=== PATIENT | female | born 1970 | race Caucasian/White ===

== ENCOUNTER 2019-07-11 11:02 | Outpatient (CLI) | payer BC, SELFPAY ==
--- NOTE | ~2019-07-11 | US_ITS ---
EXAMINATION: US venous doppler [facility] DATE: 07/11/2019 11:58 INDICATION: Phlebitis and thrombophlebitis of lower extremities, unspecified. TECHNIQUE: Grayscale ultrasound images without and with compression and Doppler ultrasound images of the left lower extremity veins were obtained. COMPARISON: None. FINDINGS: The visualized portions of left common femoral vein, profunda (deep) femoral vein, femoral vein, popl iteal vein, peroneal veins, posterior tibial veins, and greater saphenous vein outflow are patent. Th ere is a moderate-sized Amos's cyst. IMPRESSION: 1. No deep venous thrombosis. 2. Moderate-sized Amos's cyst. Reviewed, dictated and finalized at location A.
== END 2019-07-11 11:03 | disposition home or self-care (01) ==
LOC: ANHIMG 11:10
PROVIDERS: PCP Family Medicine; Visit Provider Family Medicine
DX: I80.3 Phlebitis and thrombophlebitis of lower extremities, unspecified (principal); M71.22 Synovial cyst of popliteal space [Baker], left knee
CPT/HCPCS: 93971

== ENCOUNTER 2023-06-16 09:10 | Outpatient (CLI) | payer BC, SELFPAY ==
--- NOTE | ~2023-06-16 | XR_ITS ---
Right foot Technique: AP and lateral standing views were obtained. Clinical History: Rheumatoid arthritis Findings: No acute fracture or dislocation is seen. Osseous alignment is anatomic. Joint spaces are p reserved without erosive or degenerative change. Plantar calcaneal spur noted. Soft tissues are unrem arkable. Impression: Plantar calcaneal spur, otherwise unremarkable exam. Reviewed, dictated and finalized at location . Impression: Plantar calcaneal spur, otherwise unremarkable exam.
--- NOTE | ~2023-06-16 | XR_ITS ---
EXAMINATION: HAND-ELLI ARTHRITIS 3+VIEWS DATE: 06/16/2023 09:31 INDICATION: Rheumatoid arthritis TECHNIQUE: Posteroanterior, lateral, and oblique views of the left and of the right hands as well as a ballcatchers view of both hands were obtained. COMPARISON: None. FINDINGS: Alignment is normal. No fracture. Joint spaces are normal. No evident erosions to suggest inflammator y arthritis. Soft tissues are unremarkable. IMPRESSION: 1. Negative bilateral hand radiographs with no joint space narrowing or erosions to suggest an inflam matory arthritis. Reviewed, dictated and finalized at location A. IMPRESSION: 1. Negative bilateral hand radiographs with no joint space narrowing or erosion s to suggest an inflammatory arthritis.
== END 2023-06-16 09:11 ==
LOC: GOSHIMG 09:11
PROVIDERS: PCP Family Medicine; Visit Provider Internal Medicine
DX: M77.32 Calcaneal spur, left foot (principal); M77.31 Calcaneal spur, right foot
CPT/HCPCS: 73130; 73620

== ENCOUNTER 2023-09-29 09:58 | Outpatient (CLI) | payer OTHER, SELFPAY ==
[2023-09-29 11:07] LABS: Thyroid Stimulating Hormone 0.803 uIU/mL (0.465-4.680); Total Triiodothyronine (T3) 1.54 NG/ML (0.97-1.69)
[2023-09-29 11:39] LABS: Free T4 Free Thyroxine 1.32 ng/mL (0.78-2.19)
[2023-09-30 14:54] LABS: Thyroid Peroxidase Antibodies <1 IU/mL (<9)
== END 2023-09-29 09:59 | disposition home or self-care (01) ==
PROVIDERS: PCP Family Medicine; Visit Provider Family Medicine
DX: L65.9 Nonscarring hair loss, unspecified (principal); M06.9 Rheumatoid arthritis, unspecified; M35.00 Sjogren syndrome, unspecified
CPT/HCPCS: 36415; 84439; 84443; 84480; 86376

== ENCOUNTER 2024-04-20 00:25 | Day surgery (SDC) | payer OTHER, SELFPAY ==
[2024-04-12 14:55] VITALS: BMI 23.3
--- OUTSIDE RECORDS SUMMARY | 2024-04-20 00:29 | XMS_ITS | Encounter Summary ---
Author Organization [facility] Address [address] [place] [address] Phone Care Team Providers Care Department Helper Name Role Phone Kallie Ojeda MD Unavailable Gurdeep Fernandez MD Unavailable [phone] Dana Garcia MD Primary Care Provider Encounter Details Date Type Department Care Team (Late st Contact Info) Description 04/19/2024 Results Follow-Up [facility] [address] [place] [address] HamletNichelle reyes MD [address] [place] [address] Social History Tobacco Use Types Packs/Day Years Used Date Smoking Tobacco: Former Smokeless Tobacco: Never Comments No Sex and Gender Information Value Date Recorded Sex Assigned at Not on file Legal Sex Female 2:14 AM [employer] Gender Identity Not on file Sexual Orientation Not on file documented as of this encounter Plan of Treatment Not on file documented as of this encounter Visit Diagnoses Not on filedocumented in this encounter Care Teams Department Helper Relationship Specialty Start Date End Date Dana Garcia MD [address] [place] [address] PCP - General 01/11/19 Kallie Ojeda MD [address] [facility] [address] [place] [address] Radiation Oncologist Radiation Oncology 12/15/17 Gurdeep Fernandez MD [address] [place] [address] Surgeon Surgical Oncology 12/15/17 documented as of this encounter
--- OUTSIDE RECORDS SUMMARY | 2024-04-20 00:29 | XMS_ITS | Clinical Summary ---
Author Organization [facility] Address [address] [place] [address] Care Team Providers Care Corporate Accounting Manager Name Role Phone Kallie Ojeda MD Unavailable Gurdeep Fernandez MD Unavailable [phone] Dana Garcia MD Primary Care Provider Allergies Active Allergy Reactions Criticality Noted Date Comments Barrett Chloride Hives Medium 07/11/2023 Lanolin Alcohols Hives Medium 12/01/2023 Nickel Hives Medium 11/10/2023 Sulfa (Sulfonamide Antibiotics) Urticaria Medium 06/10 Sulfanilamide Hives Reaction: Hives, Sulfasalazine Urticaria Medium 06/30/2017 Medications multivit-minerals/ferrou s fum (MULTI VITAMIN ORAL) daily Active cholecalciferol (VITAMIN D-3) 25 mcg (1,000 unit) tablet Take 1 tablet (1,000 Units total) by mouth daily Active lidocaine (XYLOCAINE) 10 mg/mL (1 %) injection as needed Active triamcinolone (Kenalog) 10 mg/mL injection as needed A ctive bupivacaine HCl (MARCAINE) 0.5 % (5 mg/mL) injection Act jersey minoxidiL (LONITEN) 2.5 mg tabletIndications:Sjogre n's syndrome with keratoconjunctivitis sicca TAKE 1/2 (ONE-HALF) TABLET BY MOUTH ONCE DAILY WITH A FATTY MEAL. 01/13/20 24 Active hydroxychloroquine (PLAQUENIL) 200 mg tabletIndications:Connec tive Tissue Disease,Sjogren syndrome Take 1.5 tablets (300 mg total) by mouth daily 45 tablet 5 03/11/19 025 Active mycophenolate mofetil (CELLCEPT) 500 mg tabletIndications:Inflam matory arthritis,Sjogren's syndrome with keratoconjunctivitis sicca Take 2 tablets (1,000 mg total) by mouth 2 (two) times a day 120 tablet 03/11/19 025 Active Active Problems Problem Noted Date Diagnosed Date Seronegative rheumatoid arthritis 03/12/2024 Alopecia areata 03/12/2024 Breast cancer screening, high risk patient 11/09 Family history of breast cancer 10/29/2021 Enthesopathy of hip region 03/22/2021 Inflammatory arthritis 03/22/2021 Sjogren's syndrome 03/22/2021 Assessment & Plan (07/19/2021 1:19 PM CDT): Presents today for f/u of mild sicca symptoms. -Exam today shows mildly decreased tear film, MGD OU -Can continue warm compresses OU and continue systane gtts PRN which she feels adequately controls her symptoms -Emely's tests today were normal (full both papers >30) -She is established with another eye care provider and prefers to f/u here PRN Assessment & Plan (04/15/2021 11:21 AM BOARD MILL SUPERVISOR): Presents today for evaluation of mild sicca symptoms. -Exam today shows mildly decreased tear film, MGD OU -Can trial warm compresses OU and continue systane gtts PRN which she feels adequately controls her symptoms -RTC 3 mos with Emely's test OU (no gtts prior to evaluation). 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 09/30/2016 Cancer Staging:Clinical stage from 09/22/2016:Stage 0(Tis (DCIS), N0, M0) - Signed by Ethel Lam, PhD on 12/15/2017 Pathologic stage from 10/21/2016:Stage 0(Tis (DCIS), N0, cM0) - Signed by Ethel Lam, PhD on 12/15/2017 Resolved Problems Problem Noted Date Diagnosed Date Resolved Date Prophylactic use of tamoxifen 10/29/2021 11/10/2023 Encounter for nonprocreative genetic counseling and testing 10/29/2021 11/10/2023 Encounter for screening mamm ogram for breast cancer 10/29/2021 03/12/2024 Aromatase inhibitor use 03/22/202110/11 Encounter for monitoring tamoxifen therapy 09/28/2018 11/10/2023 Encounters Date Type Department Care Team Description 04/19/2024 9:00 AM CDT Hospital Encounter [facility] Imaging and Radiology [address] [place] [address] Family history of breast cancer; History of ductal carcinoma in situ (DCIS) of breast; 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 Oncology [address] [place] [address] HamletNichelle reyes MD 03/11/2024 9:20 AM BOARD MILL SUPERVISOR - 03/11/2024 11:59 PM BOARD MILL SUPERVISOR Hospital Encounter [facility] [address] [place] [id number] Sjogren's syndrome with keratoconjunctivitis sicca Discharge Disposition: Discharge to home or self care 03/11/2024 9:10 AM BOARD MILL SUPERVISOR Lab [facility] [address] [place] [phone] Inflammatory arthritis; Sjogren's syndrome with keratoconjunctivitis sicca; Enthesopathy 03/11/2024 8:00 AM BOARD MILL SUPERVISOR Office Visit [facility] Rheumatology [facility] 5th [place] [address] [place] [address] Colten Soto MD PhD Inflammatory arthritis (Primary Dx); Seronegative rheumatoid arthritis (HCC); Sjogren's syndrome with keratoconjunctivitis sicca; Enthesopathy 03/08/[address] [facility] Rheumatology [address] [facility] [address] [place] [address] Deyanira Christianson, [facility] Labs Only (02/17/24) from Last 3 Months Surgical History Surgery Date Site/Laterality Comments OTHER SURGICAL HISTORY fibroid tumors: ablatiom LASIK 02/09/2013 - 02/08/2014 Bilateral HYSTERECTOMY Medical History Medical History Date Comments Fibroids 2017 History of radiation therapy Alopecia Family History Medical History Relation Name Comments Breast cancer Father's Sister Uterine cancer Maternal Grandmother Thyroid disease Mother Thyroid dise ase; Pancreatic cancer Mother's Brother Endometrial cancer Neg Hx Ovarian cancer Neg Hx Thyroid cancer Neg Hx Relation Name Status Comments Father's Sister Maternal Grandmother Mother Mother's Brother Alive Social History Tobacco Use Types Packs/Day Years Used Date Smoking Tobacco: Former Smokeless Tobacco: Never Tobacco Cessation:Counseling Given: Not Answered Comments No Sex and Gender Information Value Date Recorded Sex Assigned at Not on file Legal Sex Female 2:14 AM BOARD MILL SUPERVISOR Gender Identity Not on file Sexual Orientation Not on file Obstetrics History Para Term AB IAB SAB Ectopic Multiple Livin g Live Births 2 1 1 Date Outcome GA Total Labor Labor/2nd/3rd Weight Sex Type Anes PTL Tammy A1 A5 Name Clin Term Last Filed Vital Signs Vital Sign Reading Time Taken Comments Blood Pressure 114/77 03/11/2024 7:53 AM BOARD MILL SUPERVISOR Pulse 76 03/11/2024 7:53 AM BOARD MILL SUPERVISOR Temperature 36.9 C (98.4 F) 03/11/2024 7:53 AM BOARD MILL SUPERVISOR Respiratory Rate 18 12/01/2023 2:33 PM CDT Oxygen Saturation 99% 12/01/2023 2:33 PM CDT Inhaled Oxygen Concentration - - Weight 65.8 kg (145 lb) 03/11/2024 7:53 AM BOARD MILL SUPERVISOR Height 165.1 cm (5' 5 ) 03/11/2024 7:53 AM BOARD MILL SUPERVISOR Body Mass Index 24.13 03/11/2024 7:53 AM BOARD MILL SUPERVISOR Plan of Treatment Health Maintenance Due Date Last Done Comments Colon Cancer Screening-Colonoscopy 1969 Depression Screening 1969 DTaP/Tdap/Td Vaccine (1 - Tdap) 1980 Hepatitis B Screening 10/06/1987 Regular Well Visit/Exam 18-64 10/06/1987 Pneumococcal vaccine <65 (1 of 2 - PCV) 1988 Zoster Vaccine (1 of 2) 1988 Influenza Vaccine (#1) 2023 Breast Cancer Screening-Mammogram 11/09/2024 11/10/2023, 11/04/2022, 10/22/2021, Additional history exists Hepatitis C Screening Completed 03/22/2021 Procedures Procedure Name Priority Date/Time Associated Diagnosis Comments MRI BREAST BILATERAL W WO CONTRAST Schedule Routine, Read Routine (OP Routine) 04/19/2024 10:23 AM CDT Family history of breast cancer 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 Breast cancer screening, high risk patient XR HAND BILATERAL 3 OR MORE VIEWS OF EACH Schedule Routine, Read Routine (OP Routine) 03/11/2024 9:35 AM BOARD MILL SUPERVISOR Sjogren's syndrome with keratoconjunctivitis sicca XR WRIST BILATERAL 3 OR MORE VIEWS Schedule Routine, Read Routine (OP Routine) 03/11/2024 9:35 AM BOARD MILL SUPERVISOR Sjogren's syndrome with keratoconjunctivitis sicca EGFR Routine 03/11/2024 9:02 AM BOARD MILL SUPERVISOR Inflammatory arthritis Sjogren's syndrome with keratoconjunctivitis sicca DIFFERENTIAL AUTO Routine 03/11/2024 9:02 AM BOARD MILL SUPERVISOR Inflammatory arthritis Sjogren's syndrome with keratoconjunctivitis sicca HLA-B*27 TYPING FOR ANKYLOSING SPONDYLITIS Routine 03/11/2024 9:02 AM BOARD MILL SUPERVISOR Enthesopathy HLA CLASS I DNA (ABC) RECIPIENT Routine 03/11/2024 9:02 AM BOARD MILL SUPERVISOR Enthesopathy CBC WITH AUTO DIFFERENTIAL Routine 03/11/2024 9:02 AM BOARD MILL SUPERVISOR Inflammatory arthritis Sjogren's syndrome with keratoconjunctivitis sicca COMPREHENSIVE METABOLIC PANEL Routine 03/11/2024 9:02 AM BOARD MILL SUPERVISOR Inflammatory arthritis Sjogren's syndrome with keratoconjunctivitis sicca PROTEIN ELECTROPHORESIS, WITH REFLEX, SERUM Routine 03/11/2024 9:02 AM BOARD MILL SUPERVISOR Sjogren's syndrome with keratoconjunctivitis sicca IMMUNOGLOBULIN PROFILE Routine 03/11/2024 9:02 AM BOARD MILL SUPERVISOR Sjogren's syndrome with keratoconjunctivitis sicca IMMUNOTYPING Routine 03/11/2024 9:02 AM BOARD MILL SUPERVISOR Sjogren's syndrome with keratoconjunctivitis sicca RHEUMATOID FACTOR Routine 03/11/2024 9:02 AM BOARD MILL SUPERVISOR Inflammatory arthritis CYCLIC CITRUL PEPTIDE ANTIBODY, IGG Routine 03/11/2024 9:02 AM BOARD MILL SUPERVISOR Inflammatory arthritis SCREENING MAMMOGRAM BILATERAL W JUDE Schedule Routine, Read Routine (OP Routine) 11/10/2023 9:31 AM CDT Encounter for screening mammogram for breast cancer HEPATITIS C ANTIBODY Routine 03/22/2021 11:23 AM BOARD MILL SUPERVISOR Inflammatory arthritis from Last 3 Months or Most Recently Relevant to Health Maintenance Results * MRI Breast Bilateral W WO Contrast (04/19/2024 10:23 AM CDT) Anatomical Region Laterality Modality Breast Bilateral Magnetic Resonan ce 04/19/2024 11:5 2 AM CDT Impressions 04/19/2024 1:02 PM CDT 1. Changes of right breast conservation therapy with oval T2 hyperintense enhancing mass in the slightly outer lower right breast, mammographically stable dating back to at least 2020, therefore deemed benign. 2. No MRI evidence of malignancy within either breast. OVERALL FINAL ASSESSMENT: BI-RADS Category 2: Benign. RECOMMENDATION: Annual screening mammography, with screening breast MRI if clinically indicated, are recommended. Dictated by: Digna Kevin M.D. The radiology attending physician has personally reviewed this study, and had reviewed and/or edited this written report and agrees with it. Electronically signed by: Allison Prieto M.D. Narrative 04/19/2024 1:02 PM CDT EXAMINATION: 1. MRI EXAMINATION OF THE BREASTS WITH AND WITHOUT CONTRAST 2. 3D POST PROCESSING ON A DEDICATED 3D WORKSTATION HISTORY: 53-year-old female with history of ductal carcinoma in situ, managed with breast conservation therapy. TECHNIQUE: MRI examination of the breasts per breast tumor protocol with and without gadolinium contrast. A dedicated breast imaging coil was used. The images were transferred to a breast CAD system for 3D post processing and contrast kinetics analysis. CONTRAST: Gadoterate meglumine, 13 ml. COMPARISON: Multiple mammograms, most recently 11/04/2022. BREAST COMPOSITION: Scattered fibroglandular tissue. BACKGROUND PARENCHYMAL ENHANCEMENT: Mild. FINDINGS: Postsurgical changes are noted within the upper outer right breast with patchy areas of enhancement around the lumpectomy site, consistent with changes of breast conservation therapy. There is an oval 0.6 cm T2 hyperintense enhancing mass with circumscribed margins in the slightly outer lower right breast at mid to posterior depth. There is no suspicious enhancing mass or non-mass enhancement noted within the left breast. No abnormally enlarged lymph nodes are identified in the visualized portions of either axilla. Nichelle Mcnulty MD IM MRI PROCEDURES Final Re sult * XR Wrist Bilateral 3 or More Views (03/11/2024 9:35 AM BOARD MILL SUPERVISOR) Anatomical Region Laterality Modality Upper Extremities, Wrist Compute d Radiography 03/11/2024 11:1 6 AM BOARD MILL SUPERVISOR Impressions 03/11/2024 11:50 AM BOARD MILL SUPERVISOR No definite radiographic evidence of inflammatory arthritis in the hands and wrists. Dictated by: Deonte June MD The radiology attending physician has personally reviewed this study, and had reviewed and/or edited this written report and agrees with it. Electronically signed by: Rolando Abbott D.O. Narrative 03/11/2024 11:50 AM BOARD MILL SUPERVISOR EXAMINATION: XR WRIST BILATERAL 3 OR MORE VIEWS, XR HAND BILATERAL 3 OR MORE VIEWS OF EACH HISTORY: Sjogren's syndrome, concern for inflammatory arthritis COMPARISON: Multiple prior radiographs, most recently 07/24/2020 FINDINGS: Bilateral wrists: No acute fracture or dislocation of the wrist. There is bilateral mild triscaphe osteoarthritis. No definite osseous erosions or periostitis. Bilateral hands: No acute fracture or dislocation of the hands. Normal joint spaces. No definite osseous erosion or periostitis. Procedure Note MilenaRolando DO - 03/11/2024 EXAMINATION: XR WRIST BILATERAL 3 OR MORE VIEWS, XR HAND BILATERAL 3 OR MORE VIEWS OF EACH HISTORY: Sjogren's syndrome, concern for inflammatory arthritis COMPARISON: Multiple prior radiographs, most recently 07/24/2020 FINDINGS: Bilateral wrists: No acute fracture or dislocation of the wrist. There is bilateral mild triscaphe osteoarthritis. No definite osseous erosions or periostitis. Bilateral hands: No acute fracture or dislocation of the hands. Normal joint spaces. No definite osseous erosion or periostitis. IMPRESSION: No definite radiographic evidence of inflammatory arthritis in the hands and wrists. Dictated by: Deonte June MD The radiology attending physician has personally reviewed this study, and had reviewed and/or edited this written report and agrees with it. Electronically signed by: Rolando Abbott D.O. [facility] Porsha Soto MD PhD IMG XR PROCEDURES F inal Result * XR Hand Bilateral 3 or More Views of Each (03/11/2024 9:35 AM BOARD MILL SUPERVISOR) Anatomical Region Laterality Modality Upper Extremities, Hand Computed Radiography 03/11/2024 11:1 6 AM BOARD MILL SUPERVISOR Impressions 03/11/2024 11:50 AM BOARD MILL SUPERVISOR No definite radiographic evidence of inflammatory arthritis in the hands and wrists. Dictated by: Deonte June MD The radiology attending physician has personally reviewed this study, and had reviewed and/or edited this written report and agrees with it. Electronically signed by: Rolando Abbott D.O. Narrative 03/11/2024 11:50 AM BOARD MILL SUPERVISOR EXAMINATION: XR WRIST BILATERAL 3 OR MORE VIEWS, XR HAND BILATERAL 3 OR MORE VIEWS OF EACH HISTORY: Sjogren's syndrome, concern for inflammatory arthritis COMPARISON: Multiple prior radiographs, most recently 07/24/2020 FINDINGS: Bilateral wrists: No acute fracture or dislocation of the wrist. There is bilateral mild triscaphe osteoarthritis. No definite osseous erosions or periostitis. Bilateral hands: No acute fracture or dislocation of the hands. Normal joint spaces. No definite osseous erosion or periostitis. Procedure Note AbbottRolando grove, DO - 03/11/2024 EXAMINATION: XR WRIST BILATERAL 3 OR MORE VIEWS, XR HAND BILATERAL 3 OR MORE VIEWS OF EACH HISTORY: Sjogren's syndrome, concern for inflammatory arthritis COMPARISON: Multiple prior radiographs, most recently 07/24/2020 FINDINGS: Bilateral wrists: No acute fracture or dislocation of the wrist. There is bilateral mild triscaphe osteoarthritis. No definite osseous erosions or periostitis. Bilateral hands: No acute fracture or dislocation of the hands. Normal joint spaces. No definite osseous erosion or periostitis. IMPRESSION: No definite radiographic evidence of inflammatory arthritis in the hands and wrists. Dictated by: Deonte June MD The radiology attending physician has personally reviewed this study, and had reviewed and/or edited this written report and agrees with it. Electronically signed by: Rolando Abbott D.O. Intellesau Soto MD PhD IMG XR PROCEDURES F inal Result * Immunotyping, serum (03/11/2024 9:02 AM BOARD MILL SUPERVISOR) Pathologist [facility] Immunosubtraction Please see comment Comment: NO PARAPROTEIN DETECTED Reviewed and signed by Thad Medeiros MD, PhD 03/13/2024 Blood 03/11/2024 9:02 AM BOARD MILL SUPERVISOR 03/11/2024 9:26 AM BOARD MILL SUPERVISOR us Intellesau Soto MD PhD LAB BLOOD ORDERABLE S Final Result [facility] [place] [address] * HLA-B*27 typing for ankylosing spondylitis (03/11/2024 9:02 AM BOARD MILL SUPERVISOR) HLA-B27 interp HLA-B*27 is Negative. [facility] Blood 03/11/2024 9:02 AM BOARD MILL SUPERVISOR 03/14/2024 2:39 PM BOARD MILL SUPERVISOR Narrative [facility] - 03/14/2024 2:39 PM BOARD MILL SUPERVISOR HLA-B typing is performed using the reverse sequence specific oligonucleotide (r-SSO) method, which is based on an FDA approved IVD kit and validated by the [facility] laboratory. Interpretive comments: HLA-B*27 positivity confers increased risk for ankylosing spondylitis or nonradiographic axial spondyloarthritis. The absence of HLA-B*27 may help rule out these diagnoses Expected: HLA-B*27 has been found in 74% to 89% of patients with either nonradiographic axial spondyloarthritis or ankylosing spondylitis. The absolute risk of spondyloarthritis in persons with HLA-B*27 is 2% to 10%. (N Engl J Med 2016;374:2563-74) Testing performed at the [facility], [address] [place] [address], 5th floor, [place], [address]. [facility] # [id number]. Kia Perez, Ph.D., Substance Addiction Coordinator, [facility] Laboratory Armando Nielson M.D., Ph.D., Property Preservation Specialist, [facility] Laboratory Christelle Cabrera, Ph.D., CLIA Property Preservation Specialist, [facility] Current methodology and interpretive comments were last revised on 09/01/2016 us Colten Soto MD PhD LAB BLOOD ORDERABLE S Final Result [facility] * Collection Task for HLA Typing 1 (03/11/2024 9:02 AM BOARD MILL SUPERVISOR) HLA Class I DNA (ABC) Recipient Received Blood 03/11/2024 9:02 AM BOARD MILL SUPERVISOR 03/11/2024 10:34 AM BOARD MILL SUPERVISOR Colten Soto MD PhD LAB BLOOD ORDERABLE S Final Result Performing Organization Address City/[facility]/ZIP Co de Phone Number [facility] Department [place] [address] * Immunoglobulin profile (03/11/2024 9:02 AM BOARD MILL SUPERVISOR) [facility] Immunoglobulin G 1,017 700 - 1,600 mg/dL Immunoglobulin A 178 70 - 400 mg/dL [facility] Immunoglobulin M 66 40 - 230 mg/dL [facility] Blood 03/11/2024 9:02 AM BOARD MILL SUPERVISOR 03/11/2024 9:26 AM BOARD MILL SUPERVISOR us Colten Soto MD PhD LAB BLOOD ORDERABLE S Final Result Performing Organization Address City/[facility] Co de Phone Number [facility] [place] [address] * eGFR (03/11/2024 9:02 AM BOARD MILL SUPERVISOR) [facility] eGFR >90 >=60 mL/min/1. 73 m2 Comment: Interpretive Data Reference Interval Normal >/= 90 mL/min/1.73m2 Mildly decreased* 60 - 89 mL/min/1.73m2 Mildly to moderately decreased 45 - 59 mL/min/1.73m2 Moderately to severely decreased 30 - 44 mL/min/1.73m2 Severely decreased 15 - 29 mL/min/1.73m2 Kidney Failure < 15 mL/min/1.73m2 *Relative to young adult level Estimated glomerular filtration rate is determined by the 2020 CKD-EPI equation recommended by the National Kidney Foundation (A Unifying Approach to GFR Estimation: Recommendations of the NKF-ASK Task Force on Reassessing the Inclusion of Race in Diagnosing Kidney Disease, JASN 2020). The CKD-EPI equation should not be used for patients with unstable renal function and has not been validated in children and those over 70. Current interpretive data was last reviewed 2020. Blood 03/11/2024 9:02 AM BOARD MILL SUPERVISOR 03/11/2024 9:26 AM BOARD MILL SUPERVISOR us Colten Soto MD PhD LAB BLOOD ORDERABLE S Final Result [facility] Department [place] [address] * Differential, auto (03/11/2024 9:02 AM BOARD MILL SUPERVISOR) Neutrophil abs 3.8 1.5 - 6.5 K/cumm Imm gran abs 0.0 0.0 - 0.1 K/cumm [facility] Lymphocyte abs 1.9 0.8 - 3.3 K/cumm [facility] Monocyte abs 0.5 0.2 - 0.8 K/cumm [facility] Eosinophil abs 0.2 0.0 - 0.5 K/cumm [facility] Basophil abs 0.0 0.0 - 0.1 K/cumm [facility] Neutrophil pct 58.5 % [facility] Comment: Interpretive Data Percent cell count reference ranges are not reported, since discordance with absolute values may lead to misinterpretation of CBC data. Current Interpretive Data was last revised on 2017. Imm gran pct 0.3 % [facility] Comment: Interpretive Data Percent cell count reference ranges are not reported, since discordance with absolute values may lead to misinterpretation of CBC data. Current Interpretive Data was last revised on 2017. Lymphocyte pct 29.6 % [facility] Comment: Interpretive Data Percent cell count reference ranges are not reported, since discordance with absolute values may lead to misinterpretation of CBC data. Current Interpretive Data was last revised on 2017. Monocyte pct 8.0 % [facility] Comment: Interpretive Data Percent cell count reference ranges are not reported, since discordance with absolute values may lead to misinterpretation of CBC data. Current Interpretive Data was last revised on 2017. Eosinophil pct 3.1 % [facility] Comment: Interpretive Data Percent cell count reference ranges are not reported, since discordance with absolute values may lead to misinterpretation of CBC data. Current Interpretive Data was last revised on 2017. Basophil pct 0.5 % [facility] Comment: Interpretive Data Percent cell count reference ranges are not reported, since discordance with absolute values may lead to misinterpretation of CBC data. Current Interpretive Data was last revised on 2017. Blood 03/11/2024 9:02 AM BOARD MILL SUPERVISOR 03/11/2024 9:26 AM BOARD MILL SUPERVISOR Colten Soto MD PhD LAB BLOOD ORDERABLE S Final Result Performing Organization Address City/[facility]/ZIP Co de Phone Number [facility] Department [place] [address] * (ABNORMAL) CBC with auto differential (03/11/2024 9:02 AM BOARD MILL SUPERVISOR) [facility] WBC 6.5 3.8 - 9.9 K/cumm Hgb 14.0 11.9 - 15.5 g/dL [facility] Hct 42.7 35.6 - 45.5 % [facility] Plt 464(H) 150 - 400 K/cumm [facility] MPV 9.5 9.1 - 12.3 fL [facility] RBC 4.64 3.90 - 5.20 M/cumm [facility] MCV 92.0 81.3 - 96.4 fL [facility] MCH 30.2 27.1 - 33.3 pg [facility] MCHC 32.8 32.3 - 35.7 g/dL [facility] RDW CV 12.3 11.1 - 14.9 % [facility] RDW SD 41.8 35.7 - 48.1 fL [facility] NRBC abs 0.00 0.00 - 0.01 K/cumm [facility] Blood 03/11/2024 9:02 AM BOARD MILL SUPERVISOR 03/11/2024 9:26 AM BOARD MILL SUPERVISOR Colten Soto MD PhD LAB BLOOD ORDERABLE S Final Result Performing Organization Address City/[facility]/ZIP Co de Phone Number [facility] Department [place] [address] * Cyclic citrul peptide antibody, IgG (03/11/2024 9:02 AM BOARD MILL SUPERVISOR) [facility] CCP Ab 0.5 <=2.9 units/mL Comment: Interpretive data Negative: <3 units/mL Positive: > or equal to 3 units/mL Current interpretive data was last revised on 2016. Blood 03/11/2024 9:02 AM BOARD MILL SUPERVISOR 03/11/2024 9:26 AM BOARD MILL SUPERVISOR Colten Soto MD PhD LAB BLOOD ORDERABLE S Final Result Performing Organization Address City/[facility] Co de Phone Number [facility] Department [place] [address] * Rheumatoid factor (03/11/2024 9:02 AM BOARD MILL SUPERVISOR) [facility] Rheumatoid factor, quant 14.0 0.1 - 15.0 IUnits/mL Blood 03/11/2024 9:02 AM BOARD MILL SUPERVISOR 03/11/2024 9:26 AM BOARD MILL SUPERVISOR Colten Soto MD PhD LAB BLOOD ORDERABLE S Final Result Performing Organization Address City/[facility] de Phone Number [facility] [place] [address] * Protein electrophoresis with reflex, serum (03/11/2024 9:02 AM BOARD MILL SUPERVISOR) [facility] Protein, sr 7.0 6.2 - 8.2 g/dL Albumin 4.2 3.2 - 5.0 g/dL [facility] Alpha-1 globulin 0.3 0.2 - 0.4 g/dL [facility] Alpha-2 globulin 0.8 0.5 - 1.0 g/dL [facility] Beta-1 globulin 0.4 0.3 - 0.6 g/dL [facility] Beta-2 globulin 0.3 0.2 - 0.6 g/dL [facility] Gamma globulin 0.9 0.5 - 1.7 g/dL [facility] SPEP interp Please see comment [facility] Comment: No apparent monoclonal peak Electrophoretic pattern appears similar to previous sample 02-13-22 See immunotyping for further information Reviewed and signed by Thad Medeiros MD, PhD 03/13/2024 Blood 03/11/2024 9:02 AM BOARD MILL SUPERVISOR 03/11/2024 9:26 AM BOARD MILL SUPERVISOR Intelly Porsha Soto MD PhD LAB BLOOD ORDERABLE S Final Result [facility] Department [place] [address] * (ABNORMAL) Comprehensive metabolic panel (03/11/2024 9:02 AM BOARD MILL SUPERVISOR) Sodium 146(H) 135 - 145 mmol/L Potassium, pl 4.2 3.3 - 4.9 mmol/L [facility] Chloride 109 97 - 110 mmol/L [facility] CO2 28 22 - 32 mmol/L [facility] Anion gap 9 2 - 15 mmol/L [facility] BUN 11 6 - 25 mg/dL [facility] Creatinine 0.68 0.60 - 1.10 mg/dL [facility] Glucose 87 70 - 199 mg/dL [facility] Comment: Interpretive Data Fasting glucose >/= 126 mg/dl is diagnostic for diabetes. Fasting is defined as no caloric intake for at least 8 hours. Fasting glucose between 100 mg/dl to 125 mg/dl is diagnostic of prediabetes. In a patient with classic symptoms of hyperglycemia or hyperglycemic crisis, a random glucose >/= 200 mg/dl is diagnostic for diabetes. In the absence of unequivocal hyperglycemia, results should be confirmed by repeat testing. The classification and Diagnosis of Diabetes Diabetes Care 202; 46: S19-S40. Current interpretive data was last revised 2022. Calcium 9.3 8.5 - 10.3 mg/dL [facility] Bilirubin, total 0.2 0.1 - 1.2 mg/dL [facility] Protein, pl 7.5 6.5 - 8.5 g/dL [facility] Albumin 4.6 3.5 - 5.0 g/dL [facility] Alk phos 128 40 - 130 Units/L [facility] ALT 25 7 - 45 Units/L [facility] AST 18 10 - 45 Units/L [facility] Blood 03/11/2024 9:02 AM BOARD MILL SUPERVISOR 03/11/2024 9:26 AM BOARD MILL SUPERVISOR Colten Soto MD PhD LAB BLOOD ORDERABLE S Final Result [facility] Department [place] [address] * Screening Mammogram Bilateral W Jude (11/10/2023 9:31 AM CDT) Anatomical Region Laterality Modality Breast Bilateral Mammography 11/10/2023 9:40 AM CDT Impressions 11/10/2023 9:40 AM CDT No evidence of malignancy in either breast. Stable exam. FINAL ASSESSMENT: BI-RADS Category 2: Benign. 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 Recommend return for annual screening mammogram in 12 months. Electronically signed by: AMMY EL MD Narrative 11/10/2023 9:40 AM CDT EXAMINATION: BILATERAL SCREENING MAMMOGRAM COMPARISON: All prior mammograms dating back to 2017. TECHNIQUE: Full-field 2D and digital breast tomosynthesis (DBT) images were obtained. CAD was utilized. BREAST PARENCHYMAL COMPOSITION: There are scattered areas of fibroglandular density. FINDINGS: There is no suspicious mass, calcification, or distortion in either breast. History of right breast conservation therapy for DCIS in 2017. Stable appearance of right breast on mammogram. us Nichelle Mcnulty MD IMG MAMMO PROCEDURES Final Result * Hepatitis C antibody (03/22/2021 11:23 AM BOARD MILL SUPERVISOR) Hep C Ab Nonreactive Nonreactive [facility] Comment:Antibodies to HCV no t detected. Does NOT exclude the possibility of recent exposure to HCV. Blood 03/22/2021 11:2 3 AM BOARD MILL SUPERVISOR 03/22/2021 2:38 PM BOARD MILL SUPERVISOR [facility] Porsha Soto MD PhD LAB MICROBI OLOGY - GENERAL ORDERABLES Edited Result - Final [facility] Department [place] [address] from Last 3 Months or Most Recently Relevant to Health Maintenance Insurance [employer] [facility] Care Teams Corporate Accounting Manager Relationship Specialty Start Date End Date Dana Garcia MD [address] [place] [address] PCP - General 01/11/19 Kallie Ojeda MD [address] [facility] # LL [address] [place] [address] Radiation Oncologist Radiation Oncology 12/15/17 Gurdeep Fernandez MD [address] [place] [address] Surgeon Surgical Oncology 12/15/17
--- OUTSIDE RECORDS SUMMARY | 2024-04-20 00:29 | XMS_ITS | Referral Summary ---
Author Organization [facility] Address [address] [place] [address] Care Team Providers Care Retail Loss Prevention Investigator Name Role Phone Kallie Ojeda MD Unavailable Gurdeep Fernandez MD Unavailable [phone] Dana Garcia MD Primary Care Provider Encounters Date Type Department Care Team Description 04/19/2024 Results Follow-Up [facility] Oncology [address] [place] [address] Nichelle Mcnulty MD 04/19/2024 9:00 AM CDT Hospital Encounter [facility] Imaging and Radiology [address] [place] [address] Family history of breast cancer; History of ductal carcinoma in situ (DCIS) of breast; 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; Breast cancer screening, high risk patient 03/11/2024 9:20 AM ANIMAL LABORATORY TECHNICIAN - 03/11/2024 11:59 PM ANIMAL LABORATORY TECHNICIAN Hospital Encounter [facility] Radiology [facility] [address] [place] [address] Sjogren's syndrome with keratoconjunctivitis sicca Discharge Disposition: Discharge to home or self care 03/11/2024 9:10 AM ANIMAL LABORATORY TECHNICIAN Lab [facility] [address] [place] [phone] Inflammatory arthritis; Sjogren's syndrome with keratoconjunctivitis sicca; Enthesopathy 03/11/2024 8:00 AM ANIMAL LABORATORY TECHNICIAN Office Visit [facility] Rheumatology [address] [facility] 5th [place] [address] [place] [address] Colten Soto MD PhD Inflammatory arthritis (Primary Dx); Seronegative rheumatoid arthritis (HCC); Sjogren's syndrome with keratoconjunctivitis sicca; Enthesopathy 03/08/2024 Telephone [facility] Rheumatology [address] [facility] Medical Office Building [address] [place] [address] Deyanira Christianson [facility] Only (02/17/24) from Last 3 Months Allergies Active Allergy Reactions Criticality Noted Date Comments Alexander Chloride Hives Medium 07/11/2023 Lanolin Alcohols Hives [...] by mouth daily 45 tablet 5 03/11/19 25 025 Active mycophenolate mofetil (CELLCEPT) 500 mg tabletIndications:Inflam matory arthritis,Sjogren's syndrome with keratoconjunctivitis sicca Take 2 tablets (1,000 mg total) by mouth 2 (two) times a day 120 tablet 5 03/11/19 25 025 Active Active Problems Problem Noted Date [...] PRN Assessment & Plan (04/15/2021 11:21 AM ANIMAL LABORATORY TECHNICIAN): Presents today for evaluation of mild sicca [...] Encounter for monitoring tamoxifen therapy 09/28/2018 11/10/2023 Social History Tobacco Use Types Packs/Day Years Used Date Smoking Tobacco: Former Smokeless Tobacco: Never Tobacco Cessation:Counseling Given: Not Answered Comments No Sex and Gender Information Value Date Recorded Sex Assigned at Not on file Legal Sex Female 2:14 AM ANIMAL LABORATORY TECHNICIAN Gender Identity Not on file Sexual Orientation Not on file Last Filed Vital Signs Vital Sign Reading Time Taken Comments Blood Pressure 114/77 03/11/2024 7:53 AM ANIMAL LABORATORY TECHNICIAN Pulse 76 03/11/2024 7:53 AM ANIMAL LABORATORY TECHNICIAN Temperature 36.9 C (98.4 F) 03/11/2024 7:53 AM ANIMAL LABORATORY TECHNICIAN Respiratory Rate 18 12/01/2023 2:33 PM CDT Oxygen Saturation 99% 12/01/2023 2:33 PM CDT Inhaled Oxygen Concentration - - Weight 65.8 kg (145 lb) 03/11/2024 7:53 AM ANIMAL LABORATORY TECHNICIAN Height 165.1 cm (5' 5 ) 03/11/2024 7:53 AM ANIMAL LABORATORY TECHNICIAN Body Mass Index 24.13 03/11/2024 7:53 AM ANIMAL LABORATORY TECHNICIAN Plan of Treatment Not on file Procedures Procedure Name Priority Date/Time Associated Diagnosis [...] Read Routine (OP Routine) 03/11/2024 9:35 AM ANIMAL LABORATORY TECHNICIAN Sjogren's syndrome with keratoconjunctivitis sicca XR WRIST BILATERAL 3 OR MORE VIEWS Schedule Routine, Read Routine (OP Routine) 03/11/2024 9:35 AM ANIMAL LABORATORY TECHNICIAN Sjogren's syndrome with keratoconjunctivitis sicca EGFR Routine 03/11/2024 9:02 AM ANIMAL LABORATORY TECHNICIAN Inflammatory arthritis Sjogren's syndrome with keratoconjunctivitis sicca DIFFERENTIAL AUTO Routine 03/11/2024 9:02 AM ANIMAL LABORATORY TECHNICIAN Inflammatory arthritis Sjogren's syndrome with keratoconjunctivitis sicca HLA-B*27 TYPING FOR ANKYLOSING SPONDYLITIS Routine 03/11/2024 9:02 AM ANIMAL LABORATORY TECHNICIAN Enthesopathy HLA CLASS I DNA (ABC) RECIPIENT Routine 03/11/2024 9:02 AM ANIMAL LABORATORY TECHNICIAN Enthesopathy CBC WITH AUTO DIFFERENTIAL Routine 03/11/2024 9:02 AM ANIMAL LABORATORY TECHNICIAN Inflammatory arthritis Sjogren's syndrome with keratoconjunctivitis sicca COMPREHENSIVE METABOLIC PANEL Routine 03/11/2024 9:02 AM ANIMAL LABORATORY TECHNICIAN Inflammatory arthritis Sjogren's syndrome with keratoconjunctivitis sicca PROTEIN ELECTROPHORESIS, WITH REFLEX, SERUM Routine 03/11/2024 9:02 AM ANIMAL LABORATORY TECHNICIAN Sjogren's syndrome with keratoconjunctivitis sicca IMMUNOGLOBULIN PROFILE Routine 03/11/2024 9:02 AM ANIMAL LABORATORY TECHNICIAN Sjogren's syndrome with keratoconjunctivitis sicca IMMUNOTYPING Routine 03/11/2024 9:02 AM ANIMAL LABORATORY TECHNICIAN Sjogren's syndrome with keratoconjunctivitis sicca RHEUMATOID FACTOR Routine 03/11/2024 9:02 AM ANIMAL LABORATORY TECHNICIAN Inflammatory arthritis CYCLIC CITRUL PEPTIDE ANTIBODY, IGG Routine 03/11/2024 9:02 AM ANIMAL LABORATORY TECHNICIAN Inflammatory arthritis SCREENING MAMMOGRAM BILATERAL W JUDE Schedule Routine, Read Routine (OP Routine) 11/10/2023 9:31 AM CDT Encounter for screening mammogram for breast cancer HEPATITIS C ANTIBODY Routine 03/22/2021 11:23 AM ANIMAL LABORATORY TECHNICIAN Inflammatory arthritis from Last 3 Months or [...] portions of either axilla. Nichelle Mcnulty MD IMG MRI PROCEDURES Final Re sult * XR Wrist Bilateral 3 or More Views (03/11/2024 9:35 AM ANIMAL LABORATORY TECHNICIAN) Anatomical Region Laterality Modality Upper Extremities, Wrist Compute d Radiography 03/11/2024 11:1 6 AM ANIMAL LABORATORY TECHNICIAN Impressions 03/11/2024 11:50 AM ANIMAL LABORATORY TECHNICIAN No definite radiographic evidence of inflammatory arthritis in the hands and wrists. Dictated by: Deonte June MD The radiology attending physician has personally reviewed this study, and had reviewed and/or edited this written report and agrees with it. Electronically signed by: Rolando Abbott D.O. Narrative 03/11/2024 11:50 AM ANIMAL LABORATORY TECHNICIAN EXAMINATION: XR WRIST BILATERAL 3 OR MORE [...] definite osseous erosion or periostitis. Procedure Note Rolando Abbott, DO - 03/11/2024 EXAMINATION: XR WRIST BILATERAL [...] it. Electronically signed by: Rolando Abbott D.O. [facility] Porsha Soto MD PhD IMG XR PROCEDURES F inal Result * XR Hand Bilateral 3 or More Views of Each (03/11/2024 9:35 AM ANIMAL LABORATORY TECHNICIAN) Anatomical Region Laterality Modality Upper Extremities, Hand Computed Radiography 03/11/2024 11:1 6 AM ANIMAL LABORATORY TECHNICIAN Impressions 03/11/2024 11:50 AM ANIMAL LABORATORY TECHNICIAN No definite radiographic evidence of inflammatory arthritis in the hands and wrists. Dictated by: Deonte June MD The radiology attending physician has personally reviewed this study, and had reviewed and/or edited this written report and agrees with it. Electronically signed by: Rolando Abbott D.O. Narrative 03/11/2024 11:50 AM ANIMAL LABORATORY TECHNICIAN EXAMINATION: XR WRIST BILATERAL 3 OR MORE [...] definite osseous erosion or periostitis. Procedure Note Rolando Abbott DO - 03/11/2024 EXAMINATION: XR WRIST BILATERAL [...] it. Electronically signed by: Rolando Abbott D.O. [facility] Porsha Soto MD PhD IMG XR PROCEDURES F inal Result * Immunotyping, serum (03/11/2024 9:02 AM ANIMAL LABORATORY TECHNICIAN) Immunosubtraction Please see comment Comment: NO PARAPROTEIN DETECTED Reviewed and signed by Thad Medeiros MD, PhD 03/13/2024 Blood 03/11/2024 9:02 AM ANIMAL LABORATORY TECHNICIAN 03/11/2024 9:26 AM ANIMAL LABORATORY TECHNICIAN Intelly Porsha Soto MD PhD LAB BLOOD ORDERABLE S Final Result [facility] Department [place] [address] * HLA-B*27 typing for ankylosing spondylitis (03/11/2024 9:02 AM ANIMAL LABORATORY TECHNICIAN) HLA-B27 interp HLA-B*27 is Negative. [facility] Blood 03/11/2024 9:02 AM ANIMAL LABORATORY TECHNICIAN 03/14/2024 2:39 PM ANIMAL LABORATORY TECHNICIAN Narrative [facility] - 03/14/2024 2:39 PM ANIMAL LABORATORY TECHNICIAN HLA-B typing is performed using the reverse sequence specific oligonucleotide (r-SSO) method, which is based on an FDA approved IVD kit and validated by the [facility] HLA laboratory. Interpretive comments: HLA-B*27 positivity confers [...] J Med 2016;374:2563-74) Testing performed at the [facility] Laboratory, [address] [place] [address], 5th floor, [place], [address]. [place] # [id number]. Kia Perez, Ph.D., Correctional Officer Lieutenant, HLA Laboratory Armando Nielson M.D., Ph.D., Master Data Analyst, [facility] Christelle Cabrera, Ph.D., CORINE Master Data Analyst, [facility] Clinical Laboratories Current methodology and interpretive comments were last revised on 09/01/2016 Colten Soto MD PhD LAB BLOOD ORDERABLE S Final Result Performing Organization Address [facility] Co de Phone Number HISTOT[facility] * Collection Task for HLA Typing 1 (03/11/2024 9:02 AM ANIMAL LABORATORY TECHNICIAN) [facility] HLA Class I DNA (ABC) Recipient Received Blood 03/11/2024 9:02 AM ANIMAL LABORATORY TECHNICIAN 03/11/2024 10:34 AM ANIMAL LABORATORY TECHNICIAN Colten Soto MD PhD LAB BLOOD ORDERABLE S Final Result Performing Organization Address [facility] de Phone Number [facility] Department [place] [address] * Immunoglobulin profile (03/11/2024 9:02 AM ANIMAL LABORATORY TECHNICIAN) [facility] Immunoglobulin G 1,017 700 - 1,600 mg/dL Immunoglobulin A 178 70 - 400 mg/dL [facility] Immunoglobulin M 66 40 - 230 mg/dL [facility] Blood 03/11/2024 9:02 AM ANIMAL LABORATORY TECHNICIAN 03/11/2024 9:26 AM ANIMAL LABORATORY TECHNICIAN Colten Soto MD PhD LAB BLOOD ORDERABLE S Final Result Performing Organization Address [facility] de Phone Number [facility] Department [place] [address] * eGFR (03/11/2024 9:02 AM ANIMAL LABORATORY TECHNICIAN) [facility] eGFR >90 >=60 mL/min/1. 73 m2 Comment: [...] of Race in Diagnosing Kidney Disease, JASN 202). The CKD-EPI equation should not be used for patients with unstable renal function and has not been validated in children and those over 70. Current interpretive data was last reviewed 2020. Blood 03/11/2024 9:02 AM ANIMAL LABORATORY TECHNICIAN 03/11/2024 9:26 AM ANIMAL LABORATORY TECHNICIAN us Intelly Porsha Soto MD PhD LAB BLOOD ORDERABLE S Final Result [facility] Department [place] [address] * Differential, auto (03/11/2024 9:02 AM ANIMAL LABORATORY TECHNICIAN) Neutrophil abs 3.8 1.5 - 6.5 K/cumm Imm gran abs 0.0 0.0 - 0.1 K/cumm [facility] Lymphocyte abs 1.9 0.8 - 3.3 K/cumm [facility] Monocyte abs 0.5 0.2 - 0.8 K/cumm [facility] Eosinophil abs 0.2 0.0 - 0.5 K/cumm [facility] Basophil abs 0.0 0.0 - 0.1 K/cumm [facility] Neutrophil pct 58.5 % [facility] Comment: Interpretive Data Percent cell count reference ranges are not reported, since discordance with absolute values may lead to misinterpretation of CBC data. Current Interpretive Data was last revised on 2017. Imm gran pct 0.3 % [facility] Comment: Interpretive Data Percent cell count reference ranges are not reported, since discordance with absolute values may lead to misinterpretation of CBC data. Current Interpretive Data was last revised on 2017. Lymphocyte pct 29.6 % [facility] Comment: Interpretive Data Percent cell count reference ranges are not reported, since discordance with absolute values may lead to misinterpretation of CBC data. Current Interpretive Data was last revised on 2017. Monocyte pct 8.0 % [facility] Comment: Interpretive Data Percent cell count reference ranges are not reported, since discordance with absolute values may lead to misinterpretation of CBC data. Current Interpretive Data was last revised on 2017. Eosinophil pct 3.1 % [facility] Comment: Interpretive Data Percent cell count reference ranges are not reported, since discordance with absolute values may lead to misinterpretation of CBC data. Current Interpretive Data was last revised on 2017. Basophil pct 0.5 % [facility] Comment: Interpretive Data Percent cell count reference ranges are not reported, since discordance with absolute values may lead to misinterpretation of CBC data. Current Interpretive Data was last revised on 2017. Blood 03/11/2024 9:02 AM ANIMAL LABORATORY TECHNICIAN 03/11/2024 9:26 AM ANIMAL LABORATORY TECHNICIAN us Intelly Porsha Soto MD PhD LAB BLOOD ORDERABLE S Final Result [facility] Department [place] [address] * (ABNORMAL) CBC with auto differential (03/11/2024 9:02 AM ANIMAL LABORATORY TECHNICIAN) WBC 6.5 3.8 - 9.9 K/cumm Hgb 14.0 11.9 - 15.5 g/dL [facility] Hct 42.7 35.6 - 45.5 % [facility] Plt 464(H) 150 - 400 K/cumm [facility] MPV 9.5 9.1 - 12.3 fL [facility] RBC 4.64 3.90 - 5.20 M/cumm [facility] MCV 92.0 81.3 - 96.4 fL [facility] MCH 30.2 27.1 - 33.3 pg [facility] MCHC 32.8 32.3 - 35.7 g/dL [facility] RDW CV 12.3 11.1 - 14.9 % [facility] RDW SD 41.8 35.7 - 48.1 fL [facility] NRBC abs 0.00 0.00 - 0.01 K/cumm [facility] Blood 03/11/2024 9:02 AM ANIMAL LABORATORY TECHNICIAN 03/11/2024 9:26 AM ANIMAL LABORATORY TECHNICIAN us Colten Soto MD PhD LAB BLOOD ORDERABLE S Final Result [facility] [place] [address] * Cyclic citrul peptide antibody, IgG (03/11/2024 9:02 AM ANIMAL LABORATORY TECHNICIAN) Pathologist [facility] CCP Ab 0.5 <=2.9 units/mL Comment: Interpretive data Negative: <3 units/mL Positive: > or equal to 3 units/mL Current interpretive data was last revised on 2016. Blood 03/11/2024 9:02 AM ANIMAL LABORATORY TECHNICIAN 03/11/2024 9:26 AM ANIMAL LABORATORY TECHNICIAN us Colten Soto MD PhD LAB BLOOD ORDERABLE S Final Result Performing Organization Address [facility] Co de Phone Number [facility] [place] [address] * Rheumatoid factor (03/11/2024 9:02 AM ANIMAL LABORATORY TECHNICIAN) Pathologist [facility] Rheumatoid factor, quant 14.0 0.1 - 15.0 IUnits/mL Blood 03/11/2024 9:02 AM ANIMAL LABORATORY TECHNICIAN 03/11/2024 9:26 AM ANIMAL LABORATORY TECHNICIAN Colten Soto MD PhD LAB BLOOD ORDERABLE S Final Result Performing Organization Address City/[facility]/ZIP Co de Phone Number [facility] [place] [address] * Protein electrophoresis with reflex, serum (03/11/2024 9:02 AM ANIMAL LABORATORY TECHNICIAN) [facility] Protein, sr 7.0 6.2 - 8.2 g/dL Albumin 4.2 3.2 - 5.0 g/dL [facility] Alpha-1 globulin 0.3 0.2 - 0.4 g/dL [facility] Alpha-2 globulin 0.8 0.5 - 1.0 g/dL [facility] Beta-1 globulin 0.4 0.3 - 0.6 g/dL [facility] Beta-2 globulin 0.3 0.2 - 0.6 g/dL [facility] Gamma globulin 0.9 0.5 - 1.7 g/dL [facility] SPEP interp Please see comment [facility] Comment: No apparent monoclonal peak Electrophoretic pattern appears similar to previous sample 03-24-21 See immunotyping for further information Reviewed and signed by Thad Medeiros MD, PhD 03/13/2024 Blood 03/11/2024 9:02 AM ANIMAL LABORATORY TECHNICIAN 03/11/2024 9:26 AM ANIMAL LABORATORY TECHNICIAN us Intelly Porsha Soto MD PhD LAB BLOOD ORDERABLE S Final Result [facility] Department [place] [address] * (ABNORMAL) Comprehensive metabolic panel (03/11/2024 9:02 AM ANIMAL LABORATORY TECHNICIAN) [facility] Sodium 146(H) 135 - 145 mmol/L Potassium, pl 4.2 3.3 - 4.9 mmol/L [facility] Chloride 109 97 - 110 mmol/L [facility] CO2 28 22 - 32 mmol/L [facility] Anion gap 9 2 - 15 mmol/L [facility] BUN 11 6 - 25 mg/dL [facility] Creatinine 0.68 0.60 - 1.10 mg/dL [facility] Glucose 87 70 - 199 mg/dL [facility] Comment: Interpretive Data Fasting glucose >/= 126 [...] classification and Diagnosis of Diabetes Diabetes Care 2021; 46: S19-S40. Current interpretive data was last revised 2022. Calcium 9.3 8.5 - 10.3 mg/dL [facility] Bilirubin, total 0.2 0.1 - 1.2 mg/dL [facility] Protein, pl 7.5 6.5 - 8.5 g/dL [facility] Albumin 4.6 3.5 - 5.0 g/dL [facility] Alk phos 128 40 - 130 Units/L [facility] ALT 25 7 - 45 Units/L [facility] AST 18 10 - 45 Units/L [facility] Blood 03/11/2024 9:02 AM ANIMAL LABORATORY TECHNICIAN 03/11/2024 9:26 AM ANIMAL LABORATORY TECHNICIAN us Intelly Porsha Soto MD PhD LAB BLOOD ORDERABLE S Final Result [facility] Department [place] [address] * Screening Mammogram Bilateral W Jude (11/10/2023 [...] Stable appearance of right breast on mammogram. Nichelle Mcnulty MD IMG MAMMO PROCEDURES Final Result * Hepatitis C antibody (03/22/2021 11:23 AM ANIMAL LABORATORY TECHNICIAN) Hep C Ab Nonreactive Nonreactive [facility] Comment:Antibodies to HCV no t detected. Does NOT exclude the possibility of recent exposure to HCV. Blood 03/22/2021 11:2 3 AM ANIMAL LABORATORY TECHNICIAN 03/22/2021 2:38 PM ANIMAL LABORATORY TECHNICIAN Colten Soto MD PhD LAB MICROBI OLOGY - GENERAL ORDERABLES Edited Result - Final [facility] Department [place] [address] from Last 3 Months or Most Recently Relevant to Health Maintenance Insurance [facility] ACCESS CHOICE [facility] Care Teams Retail Loss Prevention Investigator Relationship Specialty Start Date End Date Dana Garcia MD [address] [place] [address] PCP - General 01/11/19 Kallie Ojeda MD [address] [facility] [id number] [place] [address] Radiation Oncologist Radiation Oncology 12/15/17 Gurdeep Fernandez MD [address] [place] [address] Surgeon Surgical Oncology 12/15/17
--- OUTSIDE RECORDS SUMMARY | 2024-04-20 00:29 | XMS_ITS | Encounter Summary ---
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 Breast cancer screening, high risk patient Procedures MRI Breast Bilateral W WO Contrast Nichelle Mcnulty MD [address] [place] [address] Phone: tel: fax: [address] [phone] Referral ID Status Reason Start Date Expiration Date Visits Re quested Visits Authorized [id number] Closed 11/10/2023 12/09/2024 1 1 Reason for Visit * MRI/CAT/PET Scan (Routine) - Closed Specialty Diagnoses / Procedures Referred By Contana t Referred To Contact Radiology Diagnoses Family history of breast cancer 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 Breast cancer screening, high risk patient Procedures MRI Breast Bilateral W WO Contrast [place]le MD [address] [place] [address] Phone: tel: fax: [address] [phone] Referral ID Status Reason Start Date Expiration Date Visits Re quested Visits Authorized [id number] Closed 11/10/2023 12/09/2024 1 1 Encounter Details Date Type Department Care Team (Latest Contact Info) Description 04/19/2024 9:00 AM CDT Hospital Encounter [facility] Imaging and Radiology [address] [place] [id number] Family history of breast cancer; History of ductal carcinoma in situ (DCIS) of breast; 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; Breast cancer screening, high risk patient Social History Tobacco Use Types Packs/Day Years Used Date Smoking Tobacco: Former Smokeless Tobacco: Never Comments No Sex and Gender Information Value Date Recorded Sex Assigned at Not on file 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 Gender Identity Not on file Sexual Orientation Not on file documented as of this encounter Plan of Treatment Not on file documented as of this encounter Procedures Procedure Name Priority Date/Time Associated Diagnosis Comments MRI BREAST BILATERAL W WO CONTRAST Schedule Routine, Read Routine (OP Routine) 04/19/2024 10:23 AM CDT Family history of breast cancer 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 Breast cancer screening, high risk patient documented in this encounter Results * MRI Breast Bilateral W WO [...] MD IMG MRI PROCEDURES Final Re sult documented in this encounter Visit Diagnoses Diagnosis Family history of breast cancer Family history of malignant neoplasm of breast 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 Breast cancer screening, high risk patient Screening mammogram for high-risk patient documented in this encounter Administered Medications Inactive Administered Medications - up to 3 most recent administrations Medication Order MAR Action Action Date Dose Rate Site gadoterate meglumine injection 13 mL 13 mL, intravenous, Once in imaging, contrast, Starting on Thu04/19/24 at 0925, For 1 dose Contrast Given 04/19/2024 9:58 AM CDT 13 mL documented in this encounter Orders Medications Ordered That Andrew ht Not Have Been Administered Count Last Ordered Date First Ordered Date gadoterate meglumine injection 13 mL 1 04/09 documented in this encounter Care Teams Pruner Relationship Specialty Start Date End Date Dana Garcia MD [address] [place] [address] PCP - General 01/11/19 Kallie Ojeda MD [address] [facility] [address] [place] [address] Radiation Oncologist Radiation Oncology 12/15/17 Gurdeep Fernandez MD [address] [place] [address] Surgeon Surgical Oncology 12/15/17 documented as of this encounter
--- OUTSIDE RECORDS SUMMARY | 2024-04-20 00:29 | XMS_ITS | Clinical Summary ---
Author Organization [facility] [employer] Address [address] [place] [address] Care Team Providers Care General Office Assistant Name Role Phone Dana Garcia MD Primary Care Provider + Source Comments [facility],non-owned Affiliates and Associated Physician Practices is amultiple site organization consisting of ambulatory clinics and hospital sitesin [place], [place], [place] and [place]. This disclosure is being madepursuant to the Care Everywhere program and may not contain all information available regarding this patient. Last updated 17.[facility] [employer] Allergies Active Allergy Reactions Criticality Noted Date Comments Sulfa Drugs Urticaria Medium 06/30/2017 Medications * Be aware that medications may not be up to date on this document. Alwaysverify current medications with the patient. Medication Sig Dispensed Refills Start Date End Date Status montelukast (SINGULAIR) 10 MG tablet Take 10 mg by mouth at bedtime Active Social History Tobacco Use Types Packs/Day Years Used Date Smoking Tobacco: Every Day Smokeless Tobacco: Never Tobacco Cessation:Ready to Q uit: Yes Comments:by August Sex and Gender Information Value Date Recorded Sex Assigned at Not on file Gender Identity Not on file Sexual Orientation Not on file Last Filed Vital Signs Vital Sign Reading Time Taken Comments Blood Pressure 110/66 06/30/2017 11:35 AM CDT Pulse 85 06/30/2017 11:35 AM CDT Temperature 36.9 C (98.4 F) 06/30/2017 11:35 AM CDT Respiratory Rate 18 06/30/2017 11:35 AM CDT Oxygen Saturation 99% 06/30/2017 11:35 AM CDT Inhaled Oxygen Concentration - - Weight 68 kg (150 lb) 06/30/2017 11:35 AM CDT Height 165.1 cm (5' 5 ) 06/30/2017 11:35 AM CDT Body Mass Index 24.96 06/30/2017 11:35 AM CDT Plan of Treatment Health Maintenance Due Date Last Done Comments COLOGUARD (AGES 45-75) - COL ON CA SCREENING 1969 COLON MONITORING 1969 COLONOSCOPY - COLON CA SCREENING 1969 CT COLONOGRAPHY - COLON CA SCREENING 1969 Colorectal Cancer Screening 1969 FIT - COLON CA SCREENING 1969 FLEX SIG - COLON CA SCREENING 1969 LIPID TESTING 1969 MAMMOGRAM 1969 HIV SCREENING 1984 HEPATITIS C SCREENING 10/01/1987 DTAP/TDAP/TD VACCINES (1 - Tdap) 1988 HEPATITIS B VACCINE (1 of 3 - 19+ 3-dose series) 1988 PNEUMOCOCCAL VACCINE 50+ (1 of 1 - PCV) 10/06/2019 ZOSTER VACCINE (1 of 2) 10/06/2019 COVID-19 VACCINE (1 - 2023-2 5 season) 2023 INFLUENZA VACCINE (#1) 2023 DEPRESSION SCREENING 02/10/2024 HIB VACCINE Aged Out No longer eligi ble based on patient's age to complete this topic HPV VACCINE Aged Out No longer eligi ble based on patient's age to complete this topic MENINGOCOCCAL (Group B) VACCINE Aged Out No longer eligible based on patient's age to complete this topic MENINGOCOCCAL VACCINE Aged Out No jared carolyn eligible based on patient's age to complete this topic Care Teams General Office Assistant Relationship Specialty Start Date End Date Dana Garcia MD [address] [place] [address] PCP - General Family Medicine 06/30/17
--- OUTSIDE RECORDS SUMMARY | 2024-04-20 00:29 | XMS_ITS | Patient Health Summary ---
Author Organization [facility] Address [address] [facility] [place] [address] Care Team Providers Care Equipment Operating Engineer Name Role Phone Dana Garcia MD Primary Care Provider + Note from [facility] [place],non-owned Affiliates and Associated Physician Practices is amultiple site organization consisting of ambulatory clinics and hospital sitesin [place], [place], [place] and [place]. This disclosure is being madepursuant to the Care Everywhere program and may not contain all information available regarding this patient. Last updated 17.[facility] Allergies * Sulfa Drugs(Urticaria) -Medium Criticality Medications * Be aware that medications may not be up to date on this document. Alwaysverify current medications with the patient. * montelukast (SINGULAIR) 10 MG tablet Take 10 mg by mouth at bedtime Social History Tobacco Use Types Packs/Day Years [...] Mass Index 24.96 06/30/2017 11:35 AM CDT Care Teams Equipment Operating Engineer Relationship Specialty Start Date End Date Dana Garcia MD [address] [facility] [address] [place] [address] PCP - General Family Medicine 06/30/17
--- OUTSIDE RECORDS SUMMARY | 2024-04-20 00:29 | XMS_ITS | Referral Summary ---
Author Organization [facility] [employer] Address [address] [place] [address] Care Team Providers Care Transportation Aide Name Role Phone Dana Garcia MD Primary Care Provider + Source Comments [facility],non-owned Affiliates and Associated Physician Practices is amultiple site organization consisting of ambulatory clinics and hospital sitesin [place], [place], [place] and [place]. This disclosure is being madepursuant to the Care Everywhere program and may not contain all information available regarding this patient. Last updated 17.[facility] [employer] Allergies Active Allergy Reactions Criticality Noted Date [...] 06/30/2017 11:35 AM CDT Plan of Treatment Not on file Care Teams Transportation Aide Relationship Specialty Start Date End Date Dana Garcia MD [address] [place], [place] [id number] PCP - General Family Medicine 06/30/17
[2024-04-20 11:58] VITALS: BP 117/79; PULSE 87; RESP 18; TEMP 36.6; O2SAT 100
--- NOTE | 2024-04-20 12:07 | P.PNAN_ITS ---
Anes - Initial Pre Proc Eval Procedure: Operation Date: 04/20/24 13:00 Proposed Procedures p Screening Colonoscopy - J Luis Craig MD Date/Time: 04/20/24 12:07 Surgeon: J Luis Craig MD Pre Op Diagnosis: screening colon Patient Data Age: 53 Gender: F Height: 1.65 m Weight: 62.2 kg Last Vital Signs Temp 36.6 C 04/20/24 11:58 Pulse 87 04/20/24 11:58 Resp 18 04/20/24 11:58 BP 117/79 04/20/24 11:58 Pulse Ox 100 04/20/24 11:58 O2 Del Method Room Air 04/20/24 11:58 Allergies Allergy/AdvReac Type Severity Reaction Status Date / Time cobalt chloride Allergy Mild Hives Verified 04/12/24 14:50 Sulfa (Sulfonamide Allergy Unknown Hives Verified 04/12/24 14:50 Antibiotics) escitalopram (From Lexapro) AdvReac Intermediate Other Verified 04/12/24 14:50 amerchol Allergy Mild Hives Uncoded 04/12/24 14:50 Home Medications ?Medication ?Instructions ?Recorded ?Confirmed ?Type minoxidil 2.5 mg tablet 1.25 mg PO DAILY 02/16/24 04/20/24 History hydroxychloroquine 200 mg tablet 310 mg PO DAILY 04/06/24 04/20/24 History (Plaquenil) mycophenolate mofetil 500 mg tablet 1,000 mg PO Q12H 04/06/24 04/20/24 History cholecalciferol (vitamin D3) 25 25 mcg PO DAILY 04/12/24 04/20/24 History mcg (1,000 unit) tablet (Vitamin D3) multivitamin (Daily Multi-Vitamin 1 tablet PO DAILY 04/12/24 04/20/24 History tablet) Patient hx anesthesia problems: none Family hx anesthesia problems: none Results Review: All pre-operative results and documents have been reviewed as part of the pre- operative evaluation. [facility] Past Medical History Medical History Encounter for medication management Generalized osteoarthritis of multiple sites Breast cancer Wheezing Sprain of right foot Spider vein of lower extremity Nontoxic single thyroid nodule Mild intermittent asthma without complication Iron deficiency anemia due to chronic blood loss HX: breast cancer Contusion, knee and lower leg Cholecystitis, chronic Cellulitis of abdominal wall Accidental spider bite Shingles WILL (generalized anxiety disorder) Erythema nodosum Thrombophlebitis leg Breast cancer in situ Menopausal and female climacteric states Arthralgia Mild asthma Cat scratch fever Surgical History Surgical History History of cholecystectomy Hx of total vaginal hysterectomy Family History Family History Mother Hypertension Family history of cardiovascular disease Other Cerebrovascular accident Social History Social History Social History: Smoking packs per day: 0.5 Smoking cigarettes per day: 10.0 Years smoked: 20 Smoking pack-years: 10.00 Smoking status: Former smoker Tobacco type: cigarettes Second hand tobacco smoke exposure: Yes Smoking end date: 02/09/17 Alcohol intake: current Alcohol use details: Rarely Substance use: never Substance use type: does not use Lack of Transportation: No Lack of Food: Never True Current Housing: I Have Housing Concerned About Future Housing: No Difficulty Paying Gas/Electric Bills: No Difficulty Paying for Meds: No Currently Unemployed: YES Education: Associate Degree Difficulty w/ Childcare or Family Care: No Living arrangements: with family Additional living arrangements comments: Pt lives with her boyfriend Occupation/Education: unemployed Gender identity (if verbalized by the patient): Female Sexual Orientation (if Verbalized by the Patient): Straight or Heterosexual Anes - Eval Final PreProcedure Day of Procedure 04/20/24 12:07 Patient weight: normal Heart: regular rate and rhythm Lungs: clear to auscultation Airway: Mallampati scale class II Neurological: alert and oriented Last oral intake: >/= 8 hours ASA classification: III Emergent: no Anesthetic plan: proceed Anesthesia type and monitoring: general GIVS and standard monitoring Results Review: All pre-operative results and documents have been reviewed as part of the pre- operative evaluation. Informed Consent: The patient's anesthetic plan and its attendant risks and benefits were discussed with the patient/family/POA. Questions were solicited and answers provided to the satisfaction of the patient/family/POA.
[2024-04-20] MEDS: LACTATED RINGERS 1,000 ML 150 ML IV CONT (12:10)
--- NOTE | 2024-04-20 13:42 | PM.HPGS ---
History of Present Illness History of Present Illness Consent: Risks, benefits, and alternatives have been discussed and questions answered. Patient agrees to proceed with procedure. Chief complaint: screening colon Narrative: Karol De Souza is a 53 year old female here for first screening colonoscopy Review of Systems Review of Systems: All systems reviewed & are unremarkable except as noted in HPI and below PMFSH Past Medical History Medical History (Updated 04/20/24 @ 13:45 by J Luis Craig MD) Colon cancer screening Encounter for medication management Generalized osteoarthritis of multiple sites Breast cancer Wheezing Sprain of right foot Spider vein of lower extremity Nontoxic single thyroid nodule Mild intermittent asthma without complication Iron deficiency anemia due to chronic blood loss HX: breast cancer Contusion, knee and lower leg Cholecystitis, chronic Cellulitis of abdominal wall Accidental spider bite Shingles WILL (generalized anxiety disorder) Erythema nodosum Thrombophlebitis leg Breast cancer in situ Menopausal and female climacteric states Arthralgia Mild asthma Cat scratch fever Surgical History Surgical History History of cholecystectomy Hx of total vaginal hysterectomy Family History Family History Mother Hypertension Family history of cardiovascular disease Other Cerebrovascular accident Social History Social History Social History: Smoking packs per day: 0.5 Smoking cigarettes per day: 10.0 Years smoked: 20 Smoking pack-years: 10.00 Smoking status: Former smoker Tobacco type: cigarettes Second hand tobacco smoke exposure: Yes Smoking end date: 02/09/17 Alcohol intake: current Alcohol use details: Rarely Substance use: never Substance use type: does not use Lack of Transportation: No Lack of Food: Never True Current Housing: I Have Housing Concerned About Future Housing: No Difficulty Paying Gas/Electric Bills: No Difficulty Paying for Meds: No Currently Unemployed: YES Education: Associate Degree Difficulty w/ Childcare or Family Care: No Living arrangements: with family Additional living arrangements comments: Pt lives with her boyfriend Occupation/Education: unemployed Gender identity (if verbalized by the patient): Female Sexual Orientation (if Verbalized by the Patient): Straight or Heterosexual Meds Home Medications and Allergies Home Medications ?Medication ?Instructions ?Recorded ?Confirmed ?Type minoxidil 2.5 mg tablet 1.25 mg PO DAILY 02/16/24 04/20/24 History hydroxychloroquine 200 mg tablet 310 mg PO DAILY 04/06/24 04/20/24 History (Plaquenil) mycophenolate mofetil 500 mg tablet 1,000 mg PO Q12H 04/06/24 04/20/24 History cholecalciferol (vitamin D3) 25 25 mcg PO DAILY 04/12/24 04/20/24 History mcg (1,000 unit) tablet (Vitamin D3) multivitamin (Daily Multi-Vitamin 1 tablet PO DAILY 04/12/24 04/20/24 History tablet) Allergies Allergy/AdvReac Type Severity Reaction Status Date / Time cobalt chloride Allergy Mild Hives Verified 04/12/24 14:50 Sulfa (Sulfonamide Allergy Unknown Hives Verified 04/12/24 14:50 Antibiotics) escitalopram (From Lexapro) AdvReac Intermediate Other Verified 04/12/24 14:50 amerchol Allergy Mild Hives Uncoded 04/12/24 14:50 Vital Signs Vital Signs - 24 hr 04/20/24 11:58 Temperature 97.9 F Pulse Rate 87 Respiratory Rate 18 Blood Pressure 117/79 Pulse Oximetry 100 Oxygen Delivery Room Air Exam Const: General: comfortable and no acute distress HENMT: Face/Nose/Sinus: Normal nares present Eyes: General: appearance normal, both eyes and all related structures Neck: Neck: no JVD Resp: Auscultation: clear to auscultation bilaterally Cardio: Rate: regular rate Rhythm: regular rhythm GI: Inspection: non-distended GI Palp: Yes Soft to palpation Skin: General skin exam: normal color Neuro: General: gait normal Speech: normal speech Extrem: General: normal to inspection Psych: Mental Status: mental status grossly normal Assessment and Plan Assessment and plan (1) Colon cancer screening: Code(s): Z12.11 - Encounter for screening for malignant neoplasm of colon Status: Acute Assessment and Plan: colonoscopy
[2024-04-20 14:08] VITALS: BP 83/34; PULSE 85; RESP 13; O2SAT 99
[2024-04-20 14:10] VITALS: BP 97/50; PULSE 71; RESP 15; O2SAT 99
[2024-04-20 14:18] VITALS: BP 105/64; PULSE 83; RESP 19; O2SAT 100
[2024-04-20 14:28] VITALS: BP 118/66; PULSE 87; RESP 17; O2SAT 100
== END 2024-04-20 14:35 | disposition home or self-care (01) ==
PROVIDERS: Referring Provider Physician Assistant; Visit Provider Internal Medicine Gastroenterology
PROC: 0DJD8ZZ Inspection of Lower Intestinal Tract, Via Natural or Artificial Opening Endoscopic (ICD-10-PCS; CPT 45378; principal; 2024-04-20 13:00)
DX: Z12.11 Encounter for screening for malignant neoplasm of colon (principal); D12.3 Benign neoplasm of transverse colon; K64.8 Other hemorrhoids; M15.0 Primary generalized (osteo)arthritis; J45.909 Unspecified asthma, uncomplicated; D50.0 Iron deficiency anemia secondary to blood loss (chronic); K81.1 Chronic cholecystitis; F41.9 Anxiety disorder, unspecified; L52 Erythema nodosum; Z98.890 Other specified postprocedural states; Z90.49 Acquired absence of other specified parts of digestive tract; Z87.891 Personal history of nicotine dependence; Z86.72 Personal history of thrombophlebitis; Z85.3 Personal history of malignant neoplasm of breast; Z82.49 Family history of ischemic heart disease and other diseases of the circulatory system
CPT/HCPCS: 45380; 88305; J2405; J2704; J7120

== ENCOUNTER 2024-08-29 11:00 | Outpatient (RCR) | payer OTHER, SELFPAY ==
--- NOTE | 2024-07-21 11:30 | OPREHPOC ---
Outpatient Therapy Plan of Care This is a Multidisciplinary Plan of Care that may contain components documented by all disciplines (PT, OT, and ST.) PT Problem 1 PT Problem #1 Knowledge Deficit PT Goal 1 Goal / Goal Update [place] with HEP Target Visit 4 PT Goal 2 Goal / Goal Update Report no knee pain greater than 2/10 for 2 consecutive weeks PT Problem 2 PT Problem #2 Impaired Strength PT Goal 1 Goal / Goal Update 1. Improve kelly hip flexion strength to 4+/5 to improve foot clearance 2. Improve kelly hip abduction strength to 4+/5 to improve lateral stability to reduce valgus stress on knees during functional activity 3. Improve kelly quad strength to 5/5 to improve stabilization with closed chain activity and walking. Target Visit 8 PT Goal 2 Goal / Goal Update Improve lower abdominal strength to 4/5 to improve stabilization of core during functional activity. Target Visit 8
--- NOTE | 2024-07-21 11:31 | PTOPEVAL1 ---
Assessment and note entered by Oscar Baptiste, PT Evaluation Information Assessment Status Evaluation ICD-10 Condition Codes (PT) Pain in right knee M25.561,Pain in left knee M25. 562 Onset Chronic Subjective Information Reports that she has a history of lateral release in high school and history of cartilage injury. Reports that she struggles with knee pain and weakness in quad and hamstring. She has a lot of pain with isolated quad activity. She can help pain a little by turning her foot out. Also has history of chronic bursitis in her right hip. She has had back issues with hip exercises in the past and is apprehensive. She has leg pain when sleeping as well. Reported Pain Level Pain Score 1: Self Report Assessment PT Clinical Summary Patient presents with kelly knee pain and notable crepitus with extension and deep flexion. Patient has notable weakness of kelly abductors and lower abdominals contributing to poor stability of knee and lower complex. She will benefit from skilled therapy to address core stabilization with progression to lower extremity strengthening to improve gait chain stability for ADL performance and walking. Plan of Care Interventions Electrical Stimulation,Gait Training,Manual Therapy,Neuro Re-education,Therapeutic Activities, Therapeutic Exercise PT Services Indicated Yes Treatment Frequency and 2x/week for 8 visits Duration These treatments will address the objective and functional deficits as defined above. The patient will be advanced safely and appropriately in order for the patient to progress towards his/her prior level of function. Additional exercises will be introduced and as well as a comprehensive home exercise program upon discharge, if needed, ?to ensure carryover of functional gains achieved in the clinic. This treatment plan has been reviewed and agreement upon by the patient.
--- NOTE | 2024-08-16 09:58 | PCPTNOTE ---
Cancelled , pt ill per front office. AKS
--- NOTE | 2024-08-18 08:01 | PCPTNOTE ---
Cancelled, not feeling well per front office. AKS
--- NOTE | 2024-08-29 11:51 | OPREHPOC ---
Outpatient Therapy Plan of Care This is a Multidisciplinary Plan of Care that may contain components documented by all disciplines (PT, OT, and ST.) PT Problem 1 PT Problem #1 Knowledge Deficit PT Goal 1 Goal / Goal Update [place] with HEP 08-29-24 d/c goal met Target Visit 4 Progress Met PT Goal 2 Goal / Goal Update Report no knee pain greater than 2/10 for 2 consecutive weeks 08-29-24 d/c goal not met, 5/10 at worst Progress Not Met PT Problem 2 PT Problem #2 Impaired Strength PT Goal 1 Goal / Goal Update 1. Improve kelly hip flexion strength to 4+/5 to improve foot clearance 2. Improve kelly hip abduction strength to 4+/5 to improve lateral stability to reduce valgus stress on knees during functional activity 3. Improve kelly quad strength to 5/5 to improve stabilization with closed chain activity and walking. 08-29-24 d/c goals 1,2 met; #3 improved to 4+/5 Target Visit 8 Progress Partially Met PT Goal 2 Goal / Goal Update Improve lower abdominal strength to 4/5 to improve stabilization of core during functional activity. 08-29-24 d/c goal met Target Visit 8 Progress Met
--- NOTE | 2024-08-29 11:51 | PTOPDC ---
Assessment and note entered by Sindhu Cheung, PT Assessment Status Discharge ICD-10 Condition Codes (PT) Pain in right knee M25.561,Pain in left knee M25. 562 Onset Chronic Subjective Information knee joints are the same, but I have learned some exercises to stretch and strengthen my leg muscles ; more stable in legs; therapy has been very helpful; the tape helps my knees; to see Dr Briggs in September about TKR. Reported Pain Level Pain Score Self Report Additional Pain Score Comments pain range of knees in the past week 4-5/10; both knees hurt about the same; always have throb and pain in knees; decrease pain: over the counter meds, ice, resting ; Assessment PT Clinical Summary Karol has received 7 PT sessions. She called and canceled 2 appointments. Compared to the initial evaluation: pain from 0-8/ 10 to 4-5/10; LE functional self rating from 53 to 51% limitation in activity level; increase strength of trunk, R and L hips and knees to 4+/5; education completed to pt for HEP, body mechanics, pain management. The goals were partially achieved. Discharge PT. And she is to continue with her HEP . Plan of Care PT Services Indicated No
== END 2024-08-29 14:04 | disposition home or self-care (01) ==
LOC: ANHPT 11:00
PROVIDERS: PCP Family Medicine; Visit Provider Physician Assistant Surgical
DX: M17.0 Bilateral primary osteoarthritis of knee (principal)
CPT/HCPCS: 97110; 97112; 97140; 97161; 97530

== ENCOUNTER 2024-10-25 09:47 | Outpatient (CLI) | payer OTHER, SELFPAY ==
[2024-10-25 10:26] LABS: Hematocrit 42.2 % (37.0-47.0); Hemoglobin 13.8 g/dL (12.0-15.0); Immature Granulocyte Percent A 0.3 % (0-0.5); Lymphocytes Absolute Auto 1.70 K/mm3 (0.9-3.2); Mean Corpuscular HGB Conc 32.7 g/dl (32-36); Mean Corpuscular Hemoglobin 29.9 pg (26-34); Mean Corpuscular Volume 91.5 fl (80-100); Nucleated Red Blood Cells Absolute Auto 0.000 K/mm3 (0.0-0.012); Nucleated Red Blood Cells Perc 0.0 % (0.0-0.2); Platelet Count Result 411 k/mm3 (150-375); Red Blood Count 4.61 M/mm3 (4.2-5.4); White Blood Count 6.2 K/mm3 (4.5-10.0)
--- OUTSIDE RECORDS SUMMARY | 2024-10-25 11:13 | XMS_ITS | Encounter Summary ---
Author Organization [facility] Address [address] [place] [address] Care Team Providers Care Psychiatric Lpn Name Role Phone Unavailable Primary Care Provider Unavailabl e Encounter Details Date Type Department Care Team (Late Contact Info) Description 10/24/2024 Abstract [facility] Oncology and Hematology - Serafin [address] [place] [address] Owen Haro MD [facility] [address] [place] [phone] Social History Tobacco Use Types Packs/Day Years Used Date Smoking Tobacco: Every Day Cigarettes 0.3 16 Started: 10/20/2008 Smokeless Tobacco: Never Alcohol Use Standard Drinks/Week Comments Yes 0 (1 standard drink = 0.6 oz pur e alcohol) Occassionally Comments Unknown Sex and Gender Information Value Date Recorded Sex Assigned at Not on file Legal Sex Female 1:52 PM CDT Gender Identity Not on file Sexual Orientation Not on file documented as of this encounter Plan of Treatment Upcoming Encounters Date Type Department Care Team (Late st Contact Info) Description 11/17/2024 4:30 PM CDT Telephone Check Up [facility] Oncology and Hematology - Serafin Farh[address] [place] [address] [place] [address] [place], [place] [address] [address] [place] [phone] documented as of this encounter Visit Diagnoses Not on filedocumented in this encounter
--- OUTSIDE RECORDS SUMMARY | 2024-10-25 11:13 | XMS_ITS | Clinical Summary ---
Author Organization [facility] Judy cavanaugh Simon Address [address] [place] [address] Care Team Providers Care Wood Mechanist Name Role Phone Unavailable Primary Care Provider Unavailabl e Allergies Active Allergy Reactions Criticality Noted Date Comments [place] Chloride Hives High 07/11/2023 Diclofenac Nausea and Vomiting Low 10/20/2024 Sulfa (Sulfonamide Antibiotics) Hives High 06/30/2017 Reaction: Hives, Medications cholecalciferol, vitamin D3, 1,000 unit Take 1,000 Units by mouth. 04/12/2024 Active hydroxychloroqui ne (PLAQUENIL,SOVUN A) 200 mg tablet Take 200 mg by mouth. 04/06/2024 Active mycophenolate mofetil (CELLCEPT) 500 mg tablet Take 500 mg by mouth 2 times daily. 04/06/2024 Active naproxen (NAPROSYN EC) 500 mg Tablet, Delayed Release (E.C.) Take by mouth 2 times daily. Active multivitamin (DAILY-NAMAN) tablet Take 1 Tablet by mouth daily. Active Active Problems Problem Noted Date Diagnosed Date Elevated platelet count 10/20/2024 Encounters Date Type Department Care Team Description 10/24/2024 Abstract [facility] Oncology and Hematology - [address]af[address] [place] [address] Owen Haro MD 10/20/2024 1:30 PM CDT Office Visit [facility] Oncology and Hematology [address] [place] [address] Karen Dubose MD Elevated platelet count (Primary Dx) from Last 3 Months Family History Medical History Relation Name Comments No Known Problems Brother No Known Problems Child No Known Problems Father breast can cer on fathers side of family Heart Failure Mother afib Mother Relation Name Status Comments Brother Alive Child Alive Father Mother Alive Social History Tobacco Use Types Packs/Day Years Used Date Smoking Tobacco: Every Day Cigarettes 0.3 16 Started: 10/20/2008 Smokeless Tobacco: Never Tobacco Cessation:Ready to Q uit: Not Asked; Counseling Given: Not Answered Alcohol Use Standard Drinks/Week Comments Yes 0 (1 standard drink = 0.6 oz pur e alcohol) Occassionally Comments Unknown Sex and Gender Information Value Date Recorded Sex Assigned at Not on file Legal Sex Female 1:52 PM CDT Gender Identity Not on file Sexual Orientation Not on file Last Filed Vital Signs Vital Sign Reading Time Taken Comments Blood Pressure 128/79 10/20/2024 1:12 PM CDT Pulse 80 10/20/2024 1:12 PM CDT Temperature 37 C (98.6 F) 10/20/2024 1:12 PM CDT Respiratory Rate 15 10/20/2024 1:12 PM CDT Oxygen Saturation 98% 10/20/2024 1:12 PM CDT Inhaled Oxygen Concentration - - Weight 66.5 kg (146 lb 9.6 oz) 10/20/2024 1:12 P M CDT Height 162.6 cm (5' 4) 10/20/2024 1:12 PM CDT Body Mass Index 25.16 10/20/2024 1:12 PM CDT Plan of Treatment Upcoming Encounters Date Type Department Care Team (Late st Contact Info) Description 11/17/2024 4:30 PM CDT Telephone Check Up [facility] Oncology and Hematology - Serafin [address] [facility] [address] [place] [address] Owen Haro MD [address] [facility] [address] [place] [address] Health Maintenance Due Date Last Done Comments Pre-Diabetes and Diabetes Screening 1969 DTAP/TDAP/TD VACCINES (1 - Tdap) 1988 HEPATITIS B VACCINES (1 of 3 - 19+ 3-dose series) 1988 ZOSTER VACCINE (1 of 2) 1988 COLORECTAL SCREENING 2014 Colorectal Cancer Screening 2014 FIT-DNA Q 3 years 2014 FIT/FOBT Q 1 year 2014 Flex Sig/CT Colonography Q 5 years 2014 INFLUENZA VACCINE (#1) 2024 BREAST CANCER SCREENING 11/09/2024 11/10/19 24, 11/10/2023, 11/04/2022, Additional history exists Insurance [facility] MEDICAID
--- OUTSIDE RECORDS SUMMARY | 2024-10-25 11:13 | XMS_ITS | Clinical Summary ---
Author Organization [facility] Address [address] [place] [address] Care Team Providers Care College Physics Instructor Name Role Phone Kallie Ojeda MD Unavailable Gurdeep Fernandez MD Unavailable [phone] Dana Garcia MD Primary Care Provider Allergies Active Allergy Reactions Criticality Noted Date Comments [place] Chloride Hives Medium 07/11/2023 Lanolin Alcohols Hives [...] WITH A FATTY MEAL. 01/13/20 24 Active fluoride, sodium, 1.1 % pasteIndications:Gingivi tis,Prevention of Dental Caries Apply 2 g to teeth 2 (two) times a day 112 g 3 06/18/19 25 Active hydroxychloroquine (PLAQUENIL) 200 mg tabletIndications:Connec tive Tissue Disease,Sjogren syndrome Take 1.5 tablets (300 mg total) by mouth daily 45 tablet 5 07/15/19 25 025 Active mycophenolate mofetil (CELLCEPT) 500 mg tabletIndications:Sjogre n's syndrome with other organ involvement,High risk medication use Take 2 tablets (1,000 mg total) by mouth 2 (two) times a day 120 tablet 5 07/28/19 25 025 Active Active Problems Problem Noted Date Diagnosed Date High risk medication use 06/18/2024 Seronegative rheumatoid arthritis 03/12/2024 Alopecia areata 03/12/2024 Family history of breast cancer 10/29/2021 Enthesopathy [...] PRN Assessment & Plan (04/15/2021 11:21 AM MACHINIST LINOTYPE): Presents today for evaluation of mild sicca [...] Problem Noted Date Diagnosed Date Resolved Date Breast cancer screening, high risk patient 11/10/2023 06/18/2024 Prophylactic use of tamoxifen 10/29/2021 11/10/2023 Encounter for nonprocreative genetic counseling and testing 10/29/2021 11/10/2023 Encounter for screening mamm ogram for breast cancer 10/29/2021 03/12/2024 Aromatase inhibitor use 03/22/202110/11 Encounter for monitoring tamoxifen therapy 09/28/2018 11/10/2023 Surgical History Surgery Date Site/Laterality Comments OTHER [...] Types Packs/Day Years Used Date Smoking Tobacco: Some Days Cigarettes 0.3 5.7 Started: 2019 Smokeless Tobacco: Never Tobacco Cessation:Ready to Q uit: Yes; Counseling Given: Yes Comments No Sex and Gender Information Value Date Recorded Sex Assigned at Not on file Legal Sex Female 2:14 AM MACHINIST LINOTYPE Gender Identity Not on file Sexual Orientation Not on file Obstetrics History Para Term AB IAB SAB Ectopic Multiple Livin g Live Births 2 1 1 Date Outcome GA Total Labor Labor/2nd/3rd Weight Sex Type Anes PTL Tammy A1 A5 Name Clin Term Last Filed Vital Signs Vital Sign Reading Time Taken Comments Blood Pressure 112/77 06/17/2024 12:49 PM CDT Pulse 76 06/17/2024 12:49 PM CDT Temperature 37 C (98.6 F) 06/17/2024 12:49 PM CDT Respiratory Rate 18 12/01/2023 2:33 PM CDT Oxygen Saturation 99% 12/01/2023 2:33 PM CDT Inhaled Oxygen Concentration - - Weight 65.3 kg (144 lb) 06/17/2024 12:49 PM CDT Height 165.1 cm (5' 5) 06/17/2024 12:49 PM CDT Body Mass Index 23.96 06/17/2024 12:49 PM CDT Plan of Treatment Health Maintenance Due Date Last Done Comments Colon Cancer Screening-Colonoscopy 1969 Depression Screening 1969 DTaP/Tdap/Td Vaccine (1 - Tdap) 1980 Hepatitis B Screening 10/06/1987 Regular Well Visit/Exam 18-64 10/06/1987 Pneumococcal vaccine <65 (1 of 2 - PCV) 1988 Zoster Vaccine (1 of 2) 1988 Influenza Vaccine (#1) 2024 Breast Cancer Screening-Mammogram 11/09/2024 11/10/2023, 11/04/2022, 10/22/2021, Additional history exists Hepatitis C Screening Completed 03/22/2021 Procedures Procedure Name Priority Date/Time Associated Diagnosis Comments SCREENING MAMMOGRAM BILATERAL W JUDE Schedule Routine, Read Routine (OP Routine) 11/10/2023 9:31 AM CDT Encounter for screening mammogram for breast cancer HEPATITIS C ANTIBODY Routine 03/22/2021 11:23 AM MACHINIST LINOTYPE Inflammatory arthritis from Last 3 Months or Most Recently Relevant to Health Maintenance Results * Screening Mammogram Bilateral W Jude (11/10/2023 [...] * Hepatitis C antibody (03/22/2021 11:23 AM MACHINIST LINOTYPE) Hep C Ab Nonreactive Nonreactive MIKO DE LEON Comment:Antibodies to HCV no t detected. Does NOT exclude the possibility of recent exposure to HCV. Blood 03/22/2021 11:2 3 AM MACHINIST LINOTYPE 03/22/2021 2:38 PM MACHINIST LINOTYPE Colten Soto MD PhD LAB MICROBI OLOGY - GENERAL ORDERABLES Edited Result - Final [facility] Department [place] [address] from Last 3 Months or Most Recently Relevant to Health Maintenance Insurance [facility] ACCESS CHOICE [facility] Care Teams College Physics Instructor Relationship Specialty Start Date End Date Dana Garcia MD [address] [place] [address] PCP - General 01/11/19 Kallie Ojeda MD [address] [facility] [address] [place] [address] Radiation Oncologist Radiation Oncology 12/15/17 Gurdeep Fernandez MD [address] [place] [address] Surgeon Surgical Oncology 12/15/17
--- OUTSIDE RECORDS SUMMARY | 2024-10-25 11:13 | XMS_ITS | Clinical Summary ---
Author Organization [facility] Address [address] [place] [address] Care Team Providers Care Returned Goods Sorter Name Role Phone Dana Garcia MD Primary Care Provider + Source Comments [facility],non-owned Affiliates and Associated Physician Practices is amultiple site organization consisting of ambulatory clinics and hospital sitesin [place], [place], [place] and [place]. This disclosure is being madepursuant to the Care Everywhere program and may not contain all information available regarding this patient. Last updated 17.[employer] [facility] Allergies Active Allergy Reactions Criticality Noted Date Comments Sulfa Drugs Urticaria Medium 06/30/2017 Medications * Be aware that medications may not be up to date on this document. Alwaysverify current medications with the patient. montelukast (SINGULAIR) 10 MG tablet Take 10 mg by mouth at bedtime Active Social History Tobacco Use Types Packs/Day Years Used Date Smoking Tobacco: Every Day Smokeless Tobacco: Never Tobacco Cessation:Ready to Q uit: Yes Comments:by August Comments No Sex and Gender Information Value Date Recorded Sex Assigned at Not on file Legal Sex Female 6:18 AM MOTORBOAT MECHANIC HELPER Gender Identity Not on file Sexual [...] 11:35 AM CDT Height 165.1 cm (5' 5) 06/30/2017 11:35 AM CDT Body Mass Index [...] series) 1988 PNEUMOCOCCAL VACCINE 50+ (1 of 2 - PCV) 1988 ZOSTER VACCINE (1 of 2) 10/06/2019 DEPRESSION SCREENING 02/10/2024 COVID-19 VACCINE (1 - 2023-2 5 season) 2024 INFLUENZA VACCINE (#1) 2024 HIB VACCINE Aged Out No longer eligi ble based on patient's age to complete this topic HPV VACCINE Aged Out No longer eligi ble based on patient's age to complete this topic MENINGOCOCCAL (Group B) VACC INE SHARED DECISION-MAKING Aged Out No longer eligibl e based on patient's age to complete this topic MENINGOCOCCAL GROUPS A/C/Y/W VACCINE Aged Out No longer eligible b ased on patient's age to complete this topic Insurance ANTH Member Subscriber Plan / Payer (Ef fective 2014-Present) Name:Jenna De Souza Relation to Subscriber:Self Name:JENNA DE SOUZA Payer ID:[id number] (NAIC) Type:PPO Address: [address] [place] [id number] [facility] SELF PAY NO INSURANCE Member Subscriber Plan / Payer (Ef fective for All Dates) Name:Jenna De Souza Member ID:Not on file Relation to Subscriber:Not on file Name:JENNA DE SOUZA Subscriber ID:Not on file (Home) Address: [place] [address] Payer ID:Not on file Group ID:Not on file Type:Self Pay Address: [place], [place] Care Teams Returned Goods Sorter Relationship Specialty Start Date End Date Dana Garcia MD [address] [place] [address] PCP - General Family Medicine 06/30/17
[2024-10-25 12:00] LABS: Iron 81 ug/dL (37-170)
[2024-10-25 12:04] LABS: Alanine Aminotransferase 26 U/L (6-35); Albumin Level 4.3 g/dL (3.5-5.1); Alkaline Phosphatase 99 U/L (38-126); Anion Gap 8 mmol/L (4-12); Aspartate Amino Transferase 28 U/L (14-36); Bilirubin,Total 0.4 mg/dL (0.2-1.3); Blood Urea Nitrogen 14 mg/dL (7-17); CRP < 0.5 mg/dL (<1.0); Calcium 9.2 mg/dL (8.4-10.2); Carbon Dioxide 25 mmol/L (22-30); Chloride 107 mmol/L (98-107); Estimated Glomerular Filt Rate > 60; Glucose 83 mg/dL (65-110); Potassium 4.6 mmol/L (3.4-5.0); Sodium 140 mmol/L (137-145); Total Protein 7.3 g/dL (6.3-8.2)
[2024-10-25 12:10] LABS: Percent Iron Saturation 25 % (20-50)
[2024-10-25 12:41] LABS: Ferritin 110.00 ng/mL (11.1-264)
== END 2024-10-25 09:48 | disposition home or self-care (01) ==
PROVIDERS: PCP Family Medicine; Visit Provider Internal Medicine Hematology & Oncology
DX: R79.89 Other specified abnormal findings of blood chemistry (principal)
CPT/HCPCS: 36415; 80053; 82728; 83540; 83550; 85025; 85652; 86140

== ENCOUNTER 2024-11-30 13:36 | Outpatient (CLI) | payer OTHER, SELFPAY ==
--- NOTE | ~2024-11-30 | MR_ITS ---
EXAMINATION: MR hip RT wo con DATE: 11/30/2024 14:35 INDICATION: Right hip pain TECHNIQUE: Magnetic resonance imaging (MRI) of the right hip was performed without intravenous contrast. Sequences included full-field axial PD-weighted FS FSE and T1-weighted FSE, coronal of the pelvis with PD-weighted FS FSE, T2- weighted FSE and T1-weighted FSE, small field of view of the right hip with axial PD-weighted FS FSE, sagittal PD-weighted FS FSE, coronal PD-weighted FS FSE and coronal T2 weighted FSE. Additional radial T1-weighted FGR oriented orthogonal to the acetabular rim were obtained for evaluation of the labrum. COMPARISON: None FINDINGS: Bones/labrum/cartilage: Alignment is normal. No fracture, avascular necrosis or pathologic marrow replacing process. Mild lumbar spondylosis. Mild osteoarthritis at the right hip with small region of mild partial-thickness cartilage loss with mild chondral surface irregularity and underlying subarticular cystlike change at the anterosuperior right acetabulum. Remaining cartilage at the right hip appears relatively preserved. Fluid: Symmetric physiologic amount of fluid within both hip joints. Soft tissues: Normal and symmetric muscle bulk and signal in the pelvis and visualized proximal thighs. The iliopsoas, gluteal and proximal hamstring tendons are normal. The uterus is not identified and has likely been surgically resected. Limited evaluation of visceral organs of the pelvis is otherwise unremarkable. No pathologically enlarged pelvic/inguinal lymphadenopathy. IMPRESSION: 1. 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 Reviewed, dictated and finalized at location A. IMPRESSION: 1. Mild osteoarthritis the right hip with small region of high-grade chondromal acia at the anterosuperior right acetabulum.
--- OUTSIDE RECORDS SUMMARY | 2024-11-30 17:27 | XMS_ITS | Clinical Summary ---
Author Organization [facility] Address [address] [place] [address] Care Team Providers Care Day Worker Name Role Phone Kallie Ojeda MD Unavailable Gurdeep Fernandez MD Unavailable [phone] Dana Garcia MD Primary Care Provider Allergies Active Allergy Reactions Criticality Noted Date Comments Wesley Chloride Hives Medium 07/11/2023 Lanolin Alcohols Hives [...] 120 tablet 5 07/28/[address] (EC NAPROSYN) 500 mg EC tablet Take by mouth 2 (two) times a day Active Active Problems Problem Noted Date Diagnosed [...] PRN Assessment & Plan (04/15/2021 11:21 AM ENROLLMENT MANAGEMENT VICE PRESIDENT): Presents today for evaluation of mild sicca [...] of breast c ancer 12/15/2017 Osteoarthritis 12/09/2016 Resolved Problems Problem Noted Date Diagnosed Date Resolved Date Prophylactic use of tamoxifen 10/29/2021 11/10/2023 Encounter for nonprocreative genetic counseling and testing 10/29/2021 11/10/2023 Encounter for screening mamm ogram for breast cancer 10/29/2021 03/12/2024 Aromatase inhibitor use 03/22/202110/11 Encounter for monitoring tamoxifen therapy 09/28/2018 11/10/2023 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 09/30/2016 11/15/2024 Cancer Staging:Clinical stage from 09/22/2016:Stage 0(Tis (DCIS), N0, M0) - Signed by Ethel Lam, PhD on 12/15/2017 Pathologic stage from 10/21/2016:Stage 0(Tis (DCIS), N0, cM0) - Signed by Ethel Lam, PhD on 12/15/2017 Encounters Date Type Department Care Team Description 11/18/2024 Results Follow-Up [facility] Medicine Oncology [address] [place] [address] Nichelle Mcnulty MD Diagnostic Mammogram Left W Jude 11/17/2024 1:00 PM CDT - 11/17/2024 11:59 PM CDT Hospital Encounter [facility] Imaging and Radiology [address] [place] [address] Abnormal mammogram Discharge Disposition: Discharge to home or self care 11/15/2024 9:40 AM CDT Office Visit [facility] Medicine Oncology [address] [place] [address] Nichelle Mcnulty MD 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); Family history of breast cancer; Breast cancer screening, high risk patient; Breast cancer screening by mammogram; Encounter for follow-up surveillance of breast cancer 11/15/2024 8:50 AM CDT - 11/15/2024 11:59 PM CDT Hospital Encounter [facility] Imaging and Radiology [address] [place] [address] Breast cancer screening by mammogram; Encounter for screening mammogram for breast cancer Discharge Disposition: Discharge to home or self care 11/15/2024 Results Follow-Up [facility] Medicine Oncology [address] [place] [address] Nichelle Mcnulty MD Screening Mammogram Bilateral W Jude 11/15/2024 Orders Only [facility] Medicine Oncology [address] [place] [address] Nichelle Mcnulty MD Abnormal mammogram (Primary Dx) from Last 3 Months Surgical History Surgery Date Site/Laterality Comments OTHER SURGICAL HISTORY fibroid tumors: ablatiom LASIK 02/09/2013 - 02/08/2014 Bilateral HYSTERECTOMY Medical History Medical History Date Comments Fibroids 2017 Right Breast Can cer 2017 History of radiation therapy Rig ht Breast Cancer 2017 Alopecia Family History Medical History Relation Name Comments Breast cancer Father's Sister Uterine cancer Maternal Grandmother Thyroid disease Mother Thyroid dise ase; Pancreatic cancer Mother's Brother Endometrial cancer Neg Hx Ovarian cancer Neg Hx Prostate cancer Neg Hx Thyroid cancer Neg Hx Relation Name Status Comments Father's Sister Maternal Grandmother Mother Mother's Brother Alive Social History Tobacco Use Types Packs/Day Years Used Date Smoking Tobacco: Some Days Cigarettes 0.3 5.8 Started: 2019 Smokeless Tobacco: Never Tobacco Cessation:Ready to Q uit: Yes; Counseling Given: Yes Comments No Sex and Gender Information Value Date Recorded Sex Assigned at Not on file Legal Sex Female 2:14 AM ENROLLMENT MANAGEMENT VICE PRESIDENT Gender Identity Not on file Sexual Orientation Not on file Obstetrics History Para Term AB IAB SAB Ectopic Multiple Livin g Live Births 2 1 1 1 Date Outcome GA Total Labor Labor/2nd/3rd Weight Sex Type Anes PTL Tammy A1 A5 Name Clin Term Last Filed Vital Signs Vital Sign Reading Time Taken Comments Blood Pressure 110/63 11/15/2024 9:42 AM CDT Pulse 73 11/15/2024 9:42 AM CDT Temperature 36.3 C (97.4 F) 11/15/2024 9:42 AM CDT Respiratory Rate 18 11/15/2024 9:42 AM CDT Oxygen Saturation 100% 11/15/2024 9:42 AM CDT Inhaled Oxygen Concentration - - Weight 67.3 kg (148 lb 5.9 oz) 11/17/2024 1:17 P M CDT Height 165.1 cm (5' 5) 11/17/2024 1:17 PM CDT Body Mass Index 24.69 11/17/2024 1:17 PM CDT Plan of Treatment Health Maintenance Due Date Last Done Comments Colon Cancer Screening-Colonoscopy 1969 Depression Screening 1969 DTaP/Tdap/Td Vaccine (1 - Tdap) 1980 Hepatitis B Screening 10/06/1987 Regular Well Visit/Exam 18-64 10/06/1987 Pneumococcal vaccine <65 (1 of 2 - PCV) 1988 Zoster Vaccine (1 of 2) 1988 Influenza Vaccine (#1) 2024 Breast Cancer Screening-Mammogram 11/15/2025 11/15/2024, 11/10/2023, 11/04/2022, Additional history exists Hepatitis C Screening Completed 03/22/2021 Procedures Procedure Name Priority Date/Time Associated Diagnosis Comments DIAGNOSTIC MAMMOGRAM LEFT W JUDE Routine 11/17/2024 1:29 PM CDT Abnormal mammogram SCREENING MAMMOGRAM BILATERAL W JUDE Schedule Routine, Read Routine (OP Routine) 11/15/2024 9:20 AM CDT Breast cancer screening by mammogram Encounter for screening mammogram for breast cancer COMPREHENSIVE METABOLIC PANEL Routine 11/01/2024 11:26 AM CDT Inflammatory arthritis Sjogren's syndrome with other organ involvement High risk medication use CBC WITH AUTO DIFFERENTIAL Routine 11/01/2024 11:26 AM CDT Inflammatory arthritis Sjogren's syndrome with other organ involvement High risk medication use HEPATITIS C ANTIBODY Routine 03/22/2021 11:23 AM ENROLLMENT MANAGEMENT VICE PRESIDENT Inflammatory arthritis from Last 3 Months or Most Recently Relevant to Health Maintenance Results * Diagnostic Mammogram Left W Jude (11/17/2024 1:29 PM CDT) Anatomical Region Laterality Modality Breast Left Mammography 11/17/2024 2:02 PM CDT Impressions 11/17/2024 2:02 PM CDT No persistent abnormality on additional imaging. The focal asymmetries were most consistent with overlapping breast tissue. Patient will be due for annual screening breast MRI in April 2025. OVERALL FINAL ASSESSMENT: BI-RADS Category 1: Negative. RECOMMENDATION: 1. Annual screening mammography is recommended. 2. Breast MRI should also be considered for supplemental imaging surveillance given personal history of breast cancer. Electronically signed by: AMMY EL MD Narrative 11/17/2024 2:02 PM CDT EXAMINATION: LEFT UNILATERAL DIGITAL DIAGNOSTIC MAMMOGRAM AND DIGITAL BREAST TOMOSYNTHESIS HISTORY: 54-year-old female called back from screening mammogram 11/15/2024 for 2 focal asymmetries in the lower outer left breast. History of prior breast conservation therapy in the right breast COMPARISON: 11/15/2024 and multiple priors dating back to 2019 TECHNIQUE: Full field digital mammographic views of the LEFT breast were performed, including computer aided detection (CAD) and digital breast tomosynthesis (DBT). BREAST PARENCHYMAL COMPOSITION: There are scattered areas of fibroglandular density. MAMMOGRAM FINDINGS: The 2 focal asymmetries within the lower slightly outer left breast mid to posterior depth do not persist on spot compression images and likely represented overlapping breast tissue. Nichelle Mcnulty MD IMG MAMMO PROCEDURES Final Result * (ABNORMAL) Screening Mammogram Bilateral W Jude (11/15/2024 9:20 AM CDT) Anatomical Region Laterality Modality Breast Bilateral Mammography Impressions 11/15/2024 2:00 PM CDT Left 1) Focal Asymmetry: Left breast focal asymmetry in the lower outer quadrant in the posterior depth. Assessment: 0 - Incomplete. Diagnostic mammogram with possible ultrasound is recommended. Right No evidence of malignancy. OVERALL BI-RADS FINAL ASSESSMENT: 0 - Incomplete: Needs Additional Imaging Evaluation RECOMMENDATIONS: Recommend left breast diagnostic mammogram with possible ultrasound. Narrative 11/15/2024 2:00 PM CDT EXAMINATION: Screening Mammogram Bilateral W Jude: 11/15/2024 COMPARISON: Relevant prior studies available at the time of interpretation were reviewed, including the most recent mammogram on: 11/10/2023. TECHNIQUE: Mammography was performed with 2D and digital breast tomosynthesis (DBT) images. CAD was utilized. BREAST PARENCHYMAL COMPOSITION: There are scattered areas of fibroglandular density. FINDINGS: Left 1) Focal Asymmetry: There are two focal asymmetries seen in the lower outer quadrant of the left breast in the posterior depth. This finding needs additional imaging evaluation. Right There is no suspicious mass, calcification, or architectural distortion. Nichelle Mcnulty MD IMG MAMMO PROCEDURES Final Result * (ABNORMAL) CBC with auto differential (11/01/2024 11:26 AM CDT) WBC 6.6 3.8 - 10.8 Thousand/u L [facility] RBC, POC 4.56 3.80 - 5.10 Million/uL [facility] Hgb 13.5 11.7 - 15.5 g/dL [facility] Hct 41.9 35.0 - 45.0 % [facility] MCV 91.9 80.0 - 100.0 fL [facility] MCH 29.6 27.0 - 33.0 pg [facility] MCHC 32.2 32.0 - 36.0 g/dL [facility] Comment: For adults, a slight decrease in the calculated MCHC value (in the range of 30 to 32 g/dL) is most likely not clinically significant; however, it should be interpreted with caution in correlation with other red cell parameters and the patient's clinical condition. Rdw 12.4 11.0 - 15.0 % [facility] Platelets 444(H) 140 - 400 Thousand/u L [facility] MPV 10.0 7.5 - 12.5 fL [facility] Neutrophils, abs 3,802 1,500 - 7,800 cells/uL [facility] Lymphocytes, abs 1,868 850 - 3,900 cells/uL [facility] Monocyte abs 528 200 - 950 cells/uL [facility] Eosinophils, abs 363 15 - 500 cells/uL [facility] Basophils, abs 40 0 - 200 cells/uL [facility] Neutrophils 57.6 % [facility] Lymphocyte pct 28.3 % [facility] Monocytes 8.0 % [facility] Eosinophils 5.5 % [facility] Basophils 0.6 % [facility] Blood 11/01/2024 11:2 6 AM CDT 11/01/2024 11:27 AM CDT Narrative [facility] - 11/02/2024 4:34 AM CDT FASTING:NO FASTING: NO us Intelly Porsha Soto MD PhD LAB BLOOD ORDERABLE S Final Result [facility] [address] [place] [address] * Comprehensive metabolic panel (11/01/2024 11:26 AM CDT) Pathologist [facility] Glucose 75 65 - 139 mg/dL [facility] Comment: Non-fasting reference interval BUN 13 7 - 25 mg/dL [facility] Creatinine 0.67 0.50 - 1.03 mg/dL [facility] eGFR 103 > OR = 60 mL/min/1.7 3m2 [facility] BUN/creat ratio SEE NOTE: 6 - 22 (calc) [facility] Comment: Not Reported: BUN and Creatinine are within reference range. Sodium 140 135 - 146 mmol/L [facility] Potassium, pl 4.0 3.5 - 5.3 mmol/L [facility] Chloride 105 98 - 110 mmol/L [facility] CO2 24 20 - 32 mmol/L [facility] Calcium 9.5 8.6 - 10.4 mg/dL [facility] Protein, sr 6.9 6.1 - 8.1 g/dL [facility] Albumin 4.7 3.6 - 5.1 g/dL [facility] GLOBULIN 2.2 1.9 - 3.7 g/dL (calc) [facility] Alb/glob ratio 2.1 1.0 - 2.5 (calc) [facility] Bilirubin, total 0.4 0.2 - 1.2 mg/dL [facility] Alk phos 88 37 - 153 U/L [facility] AST 18 10 - 35 U/L [facility] ALT (SGPT) 19 6 - 29 U/L [facility] Blood 11/01/2024 11:2 6 AM CDT 11/01/2024 11:27 AM CDT Narrative [facility] - 11/02/2024 4:34 AM CDT FASTING:NO FASTING: NO Colten Soto MD PhD LAB BLOOD ORDERABLE S Final Result [facility] [address] [place] [address] * Hepatitis C antibody (03/22/2021 11:23 AM ENROLLMENT MANAGEMENT VICE PRESIDENT) Hep C Ab Nonreactive Nonreactive [facility] Comment:Antibodies to HCV no t detected. Does NOT exclude the possibility of recent exposure to HCV. Blood 03/22/2021 11:2 3 AM ENROLLMENT MANAGEMENT VICE PRESIDENT 03/22/2021 2:38 PM ENROLLMENT MANAGEMENT VICE PRESIDENT Qompiumesau Soto MD PhD LAB MICROBI OLOGY - GENERAL ORDERABLES Edited Result - Final [facility] [place] [address] from Last 3 Months or Most Recently Relevant to Health Maintenance Insurance [facility] ACCESS CHOICE [facility] Member Subscriber Plan / Payer (Ef fective 2023-Present) Name:Karol De Souza Danyell Relation to Subscriber:Self Name:Karol De Souza Danyell Payer ID:[id number] (NAIC) Group ID:Not on file Type:MEDICAID RISK OTHER Address: ATTN: CLAIMS DEPT [address] [facility] [place] [phone] Care Teams Day Worker Relationship Specialty Start Date End Date Dana Garcia MD [address] [place] [address] PCP - General 01/11/19 Kallie Ojeda MD [address] [facility] [address] LL [address] [place] [address] Radiation Oncologist Radiation Oncology 12/15/17 Gurdeep Fernandez MD [address] [place] [address] Surgeon Surgical Oncology 12/15/17
--- OUTSIDE RECORDS SUMMARY | 2024-11-30 17:27 | XMS_ITS | Encounter Summary ---
Author Organization [facility] Address [address] [place] [address] Phone Care Team Providers Care Drywall Hanger Name Role Phone Kallie Ojeda MD Unavailable Gurdeep Fernandez MD Unavailable Dana Garcia MD Primary Care Provider Encounter Details Date Type Department Care Team (Late st Contact Info) Description 11/18/2024 Results Follow-Up [facility] Medicine Oncology [address] [place] [address] HamletNichelle reyes MD [address] [place], [place] [id number] Diagnostic Mammogram Left W Jude Social History Tobacco Use Types Packs/Day Years Used Date Smoking Tobacco: Some Days Cigarettes 0.3 5.8 Started: 2019 Smokeless Tobacco: Never Comments No Sex and Gender Information Value Date Recorded Sex Assigned at Not on file Legal Sex Female 2:14 AM RN RESEARCH Gender Identity Not on file Sexual Orientation Not on file documented as of this encounter Plan of Treatment Not on file documented as of this encounter Visit Diagnoses Not on filedocumented in this encounter Care Teams Drywall Hanger Relationship Specialty Start Date End Date Dana aGrcia MD [address] [place] [address] PCP - General 01/11/19 Kallie Ojeda MD [address] [facility] [address] [place] [address] Radiation Oncologist Radiation Oncology 12/15/17 Gurdeep Fernandez MD [address] [place] [address] Surgeon Surgical Oncology 12/15/17 documented as of this encounter
--- OUTSIDE RECORDS SUMMARY | 2024-11-30 17:27 | XMS_ITS | Encounter Summary ---
Author Organization [facility] Address [address] [place] [address] Phone Care Team Providers Care Online Community Manager Name Role Phone Kallie Ojeda MD Unavailable Gurdeep Fernandez MD Unavailable [phone] Dana Garcia MD Primary Care Provider Encounter Details Date Type Department Care Team (Late st Contact Info) Description 11/15/2024 Results Follow-Up [facility] Medicine Oncology [address] [place] [address] Nichelle Mcnulty MD [address] [place] [address] Screening Mammogram Bilateral W Jude Social History Tobacco Use Types Packs/Day Years Used Date Smoking Tobacco: Some Days Cigarettes 0.3 5.8 Started: 2019 Smokeless Tobacco: Never Comments No Sex and Gender Information Value Date Recorded Sex Assigned at Not on file Legal Sex Female 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 Gender Identity Not on file Sexual Orientation Not on file documented as of this encounter Miscellaneous Notes * Result Encounter Note - Nichelle Mcnulty MD - 11/15/2024 3:52 PM CDT FYI Orders placed documented in this encounter Plan of Treatment Not on file documented as of this encounter Visit Diagnoses Not on filedocumented in this encounter Care Teams Online Community Manager Relationship Specialty Start Date End Date Dana Garcia MD [address] [place] [address] PCP - General 01/11/19 Kallie Ojeda MD [address] [facility] [address] [place] [address] Radiation Oncologist Radiation Oncology 12/15/17 Gurdeep Fernandez MD [address] [place] [address] Surgeon Surgical Oncology 12/15/17 documented as of this encounter
--- OUTSIDE RECORDS SUMMARY | 2024-11-30 17:27 | XMS_ITS | Encounter Summary ---
Author Organization [facility] Address 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 [address] [place] [address] Owen Haro MD [address] [facility] [address] [place] [address] documented as of this encounter Visit Diagnoses Not on filedocumented in this encounter
--- OUTSIDE RECORDS SUMMARY | 2024-11-30 17:27 | XMS_ITS | Clinical Summary ---
Author Organization [facility] Judy cavanaugh Simon Address [address] [place] [address] Care Team Providers Care Bench Worker Helper Name Role Phone Unavailable Primary Care Provider Unavailabl e Allergies Active Allergy Reactions Criticality Noted Date Comments Sullivan Chloride Hives High 07/11/2023 Diclofenac Nausea and [...] Encounters Date Type Department Care Team Description 11/29/2024 External Device Data STL ABSTRACTION Provider, Abstract 11/17/2024 4:30 PM CDT Telephone Check Up [facility] Oncology and Hematology - [place] [address] [place] [address] Owen Haro MD 11/02/2024 Orders Only [facility] Oncology and Hematology - [place] [address] [place] [address] Owen Haro MD 10/26/2024 Orders Only [facility] Oncology and Hematology - [place] [address] [place] [address] Owen Haro MD 10/26/2024 External Device Data STL ABSTRACTION Provider, Abstract 10/25/2024 External Device Data STL ABSTRACTION Provider, Abstract 10/25/2024 External Device Data STL ABSTRACTION Provider, Abstract 10/25/2024 Orders Only [facility] Oncology and Hematology - [place] [address] [place] [id number] Owen Haro MD 10/24/2024 Abstract [facility] Oncology and Hematology - [place] [address] [place] [address] Owen Haro MD 10/20/2024 1:30 PM CDT Office Visit [facility] Oncology and Hematology - [place] [address] [place] [address] Karen Dubose MD Elevated platelet count (Primary [...] 0.3 16.1 Started: 10/20/2008 Smokeless Tobacco: Never Tobacco Cessation:Ready [...] st Contact Info) Description 03/24/2025 10:30 AM AVIONICS SYSTEMS REPAIRER Office Visit [facility] Oncology and Hematology - [place] [address] [facility] [address] [place] [address] Owen Haro MD [address] [facility] [address] [place] [address] Health Maintenance Due Date Last Done Comments DTAP/TDAP/TD VACCINES (1 - Tdap) 1988 HEPATITIS B VACCINES (1 of 3 - 19+ 3-dose series) 1988 Preventative Visit-Managed Medicaid 1988 ZOSTER VACCINE (1 of 2) 1988 COLORECTAL SCREENING 2014 Colorectal Cancer Screening 2014 FIT-DNA Q 3 years 2014 FIT/FOBT Q 1 year 2014 Flex Sig/CT Colonography Q 5 years 2014 INFLUENZA VACCINE (#1) 2024 BREAST CANCER SCREENING 11/17/2025 11/18/19 25, 11/15/2024, 11/15/2024, Additional history exists Procedures Procedure Name Priority Date/Time Associated Diagnosis Comments JAK2 EXON 12 MUTATION ANALYSIS Routine 11/02/2024 3:54 PM CDT CBC WITH AUTODIFFERENTIAL Routine 2024 3:24 PM CDT COMPREHENSIVE METABOLIC PANEL Routine 10/25/2024 2:24 PM CDT MPL EXON 10 MUTATION DETECTION Routine 10/25/2024 11:42 AM CDT from Last 3 Months Results * JAK2 EXON 12 MUTATION ANALYSIS (11/02/2024 3:54 PM CDT) Blood us Owen Haro MD HEMATOLOGY ORDERABLES COM Final Result * CBC WITH AUTODIFFERENTIAL (10/25/2024 3:24 PM CDT) Blood us Owen Haro MD HEMATOLOGY ORDERABLES Final Res ult * COMPREHENSIVE METABOLIC PANEL (10/25/2024 2:24 PM CDT) Blood us Owen Haro MD CHEMISTRY ORDERABLES Final Resu lt * MPL EXON 10 MUTATION DETECTION (10/25/2024 11:42 AM CDT) Blood us Owen Haro MD CHEMISTRY ORDERABLES Final Resu lt from Last [address] [facility] MEDICAID
--- OUTSIDE RECORDS SUMMARY | 2024-11-30 17:27 | XMS_ITS | Clinical Summary ---
Author Organization [facility] [employer] Address [address] [facility] [address] Care Team Providers Care Neurosurgery Research Director Name Role Phone Dana Garcia MD Primary Care Provider + Source Comments [facility] [employer],non-owned Affiliates and Associated Physician Practices is amultiple site organization consisting of ambulatory clinics and hospital sitesin [place], [place], [place] and [place]. This disclosure is being madepursuant to the Care Everywhere program and may not contain all information available regarding this patient. Last updated [employer] Allergies Active Allergy Reactions Criticality Noted Date [...] on file Legal Sex Female 6:18 AM DIRECTOR OF FIRST IMPRESSIONS Gender Identity Not on file Sexual Orientation [...] Payer ID:[id number] (NAIC) Type:PPO Address: [address] [place] [id number] [facility] SELF PAY NO INSURANCE Member Subscriber Plan / Payer (Ef fective for All Dates) Name:Jenna De Souza Member ID:Not on file Relation to Subscriber:Not on file Name:JENNA DE SOUZA Subscriber ID:Not on file (Home) Address: [place] [address] Payer ID:Not on file Group ID:Not on file Type:Self Pay Address: [place], [place] Care Teams Neurosurgery Research Director Relationship Specialty Start Date End Date Dana Garcia MD [address] [place] [address] PCP - General Family Medicine 06/30/17
== END 2024-11-30 13:37 | disposition home or self-care (01) ==
PROVIDERS: PCP Family Medicine; Visit Provider Orthopaedic Surgery
DX: M16.11 Unilateral primary osteoarthritis, right hip (principal); M94.251 Chondromalacia, right hip
CPT/HCPCS: 73721